=== PATIENT | female | born 1970 | race Caucasian/White ===

== ENCOUNTER 2018-11-21 15:53 | Inpatient (IN) ==
[2018-11-21] MEDS ORDERED: VANCOMYCIN IV PER PHARMACY MISC SCH (16:30)
--- NOTE | 2018-11-21 16:38 | Diag Imaging Result Doc PS360 ---
CHEST-PORTABLE - 11/21/2018 INDICATION: copd, cellulitis of panniculus COMPARISON: 05/05/2017 FINDINGS: Stable significant cardiomegaly. There is worsening pulmonary vascular congestion. There is some linear atelectasis in the midlungs bilaterally. No evidence infiltrates or edema. IMPRESSION: Cardiomegaly. Worsening, severe pulmonary vascular congestion. Bilateral linear atelectasis. Electronically signed by Micky Feliciano 11/21/2018 4:35 PM
[2018-11-21 16:41] LABS: BASO# 0.02 X1000 (0.0-0.2); BASO% 0.5 % (0.0-0.8); EOS# 0.21 X1000 (0.0-0.7); EOS% 5.4 % (0.0-10.0); HEMATOCRIT 45.7 % (37.0-47.0); HEMOGLOBIN 14.7 g/dL (12.0-16.0); LYMPH# 1.04 X1000 (1.2-3.4); LYMPH% 26.9 % (20.5-51.1); MCH 31.1 PG (27-31); MCHC 32.2 g/dL (33-37); MCV 96.8 FL (81-99); MONO# 0.29 X1000 (0.11-0.59); MONO% 7.5 % (1.7-9.3); MPV 10.8 FL (7.4-10.4); NEUT# 2.31 X1000 (1.4-6.5); NEUT% 59.7 % (42.2-75.2); PLT 151 X1000 (130-400); RBC 4.72 XMIL (4.2-5.4); RDW 15.9 % (11.5-14.5); WBC 3.87 X1000 (4.8-10.8)
--- NOTE | 2018-11-21 16:43 | EKG Report ---
Test Performed on : 11/21/2018 4:37:19 PM Test Reason : copd, cellulitis of panniculus Blood Pressure : / mmHG Vent. Rate : 073 BPM Atrial Rate : 073 BPM P-R Int : 180 ms QRS Dur : 094 ms QT Int : 404 ms P-R-T Axes : 036 -11 084 degrees QTc Int : 445 ms Normal sinus rhythm. Low voltage QRS Cannot rule out Anterior infarct , age undetermined Abnormal ECG When compared with ECG of 12-MAY-2018 08:31, Nonspecific T wave abnormality now evident in Lateral leads Confirmed by Radha GIBSON, Hipolito Horton ([id number]) on 11/22/2018 10:01:57 AM
[2018-11-21] MEDS ORDERED: ZOSYN 3.375 GM in NS 50 ML IV SCH (17:00)
[2018-11-21 17:05] LABS: ALLEN TEST YES; BE 4.5 mmoll (-3.0-3.0); BLOOD TYPE ARTERIAL; HCO3-(ACT) 27.7 mmoll (20.0-26.0); O2(CT) 14.2 mL/dL (15.0-23.0); SAMPLE BLOOD; SAO2 87.2 % (95.0-100.0); pH(98.6) 7.27 (7.35-7.45)
[2018-11-21 17:06] LABS: POTASSIUM 4.4 mmol/L (3.5-5.1)
[2018-11-21 17:07] LABS: ALB/GLOB RATIO 1.4; ALBUMIN 4.4 g/dL (3.5-5.0); CALCIUM 9.4 mg/dL (8.8-10.2); CREATININE 2.2 mg/dL (0.5-0.9); TOTAL BILIRUBIN 0.38 mg/dL (0.20-1.00); TOTAL PROTEIN 7.6 g/dL (6.3-8.3)
[2018-11-21 17:08] LABS: MODALITY CANNULA
[2018-11-21 17:09] LABS: PCO2(98.6) 74 mmHg (35-45); PO2(98.6) 45 mmHg (60-100)
[2018-11-21] MEDS ORDERED: LASIX IV ONE (17:54)
[2018-11-21] MEDS: 1/2 NS 1,000 ML IV SCH ×2 (18:19→18:24)
[2018-11-21] MEDS: MAXIPIME 1 GM in NS 50 ML IV SCH (18:31)
[2018-11-21 19:18] LABS: ALLEN TEST YES; BE 5.6 mmoll (-3.0-3.0); BLOOD TYPE ARTERIAL; HCO3-(ACT) 28.9 mmoll (20.0-26.0); METHB 1.2 % (0.0-1.5); O2(CT) 16.3 mL/dL (15.0-23.0); PO2(98.6) 76 mmHg (60-100); SAMPLE BLOOD; SAO2 96.9 % (95.0-100.0); THB 14.1 g/dL (11.5-17.4); pH(98.6) 7.34 (7.35-7.45)
[2018-11-21 19:23] LABS: MODALITY BI PAP; O2HB 82.2 % (95.0-99.0); PCO2(98.6) 62 mmHg (35-45)
[2018-11-21] MEDS: DUONEB (A & A) INH SCH ×2 (19:25→23:10)
[2018-11-21] MEDS ORDERED: SYNTHROID IV ONE (19:38)
[2018-11-21] MEDS ORDERED: SODIUM CHLORIDE 0.9% INJ ONE (19:38)
--- NOTE | 2018-11-21 20:00 | INFECTIOUS DISEASE CONSULT REP ---
DATE: 11/21/2018 CONCLUSION: The patient has an abdominal wall cellulitis. RECOMMENDATIONS: I have discontinued vancomycin and Zosyn and put the patient on instead cefepime and Zyvox. DISCUSSION: The patient tells me that for years she has had a problem with her abdominal wall being erythematous and painful. She also has been having nausea and anorexia. Laboratory studies thus far show a CBC with a white count of 3870, hemoglobin 14.7, and platelet count 151,000. Patient's blood gases show a pH of 7.27, a PO2 of 45, a pCO2 of 74. Creatinine is 2.2. GFR is 24. AST is 41. Chest x-ray shows pulmonary vascular congestion, cardiomegaly, and atelectasis. [employer] MANA[employer] HISTORY: She is a 4, para 4, AB0. She has had a tubal ligation and patient had uterine ablation REVIEW OF SYSTEMS: Eyes and ears: Patient wears glasses and she has decreased hearing. Neck: No stiffness. Respiratory: Patient is short of breath even at rest. Cardiac: No chest pain or palpitations. GI: The patient states that she has nausea and anorexia. She also has been passing less stool than usual. : Patient also told me she is passing less urine than she used to. She is not complaining of dysuria or flank pain. Bones, joints, muscles: Patient complains of knees and ankles causing her pain, especially when she tries to stand. She does not have any muscle aches. Neurologic: Patient has paresthesias in her hands and feet. She has not had any seizures. PREVIOUS HOSPITALIZATIONS AND OPERATIONS: Patient has had an appendectomy, a cholecystectomy, thyroidectomy, myocardial infarction and placement of coronary artery stents. She has also had 4 labor and deliveries, tubal ligation and a uterine ablation. MEDICAL DISEASES: Positive for diabetes mellitus, morbid obesity, hypertension, hyperlipidemia and hypothyroidism. INFECTIOUS DISEASE HISTORY: Positive for pneumonia and UTI. FAMILY HISTORY: Positive for diabetes mellitus, hypertension and cancer. SOCIAL HISTORY[place] . Her son and daughter live with her. The patient has a dog as a pet. The patient smokes cigarettes but does not drink alcoholic beverages or abuse drugs. ALLERGIES: She has no known drug allergies. MEDICATIONS: Taken at home include albuterol inhaler, atorvastatin, Symbicort inhaler, Cardizem, Repatha, Zetia, Lasix, insulin, Atrovent nasal spray, Isordil, Synthroid, lisinopril, metoprolol and Effient. PHYSICAL EXAMINATION: Vital Signs: Temperature is 98.3 degrees, pulse 71, respirations 24, blood pressure is 161/109, patient weighs 404 pounds. General: This is a morbidly obese middle-aged female. She seems to be short of breath just lying or sitting in bed. Head, eyes, ears, nose and throat: She can hear my spoken words and see near objects. She is wearing glasses now. She did not have any white patches on her tongue. Neck: Patient did not have any neck pain when she turned her head. Lungs: Distant breath sounds. Cardiovascular: Patient had distant heart tones. Abdomen: Patient had erythema of the abdominal wall with a peau d'orange texture. There is no drainage coming from the abdominal wall. There are some excoriated areas. Neurologic: The patient is awake. She can move her arms and legs. There is no tremor. Her memory as regarding her medical history was intact. Thank you for the consult. cc: MD Travon Dominique MD
[2018-11-21] MEDS: ZYVOX PO SCH (20:04)
[2018-11-21 21:12] LABS: URINE SOURCE VOIDED
[2018-11-21 21:19] LABS: BILIRUBIN URINE NEGATIVE (NEGATIVE); BLOOD URINE NEGATIVE (NEGATIVE); COLOR STRAW; GLUCOSE URINE NEGATIVE (NEGATIVE); KETONE URINE NEGATIVE (NEGATIVE); LEUKOCYTES URINE NEGATIVE (NEGATIVE); NITRITE URINE NEGATIVE (NEGATIVE); PROTEIN URINE NEGATIVE (NEGATIVE); SP GRAVITY URINE 1.004; TURBIDITY URINE CLEAR (CLEAR); UROBILINOGEN URINE NORMAL (NORMAL)
[2018-11-21 21:20] LABS: UR EPITHELIAL CELLS <10 /HPF (<10); URINE BACTERIA NEGATIVE /HPF; URINE WBC <10 /HPF (<10)
[2018-11-22] MEDS: SODIUM CHLORIDE 0.9% INJ PRN (05:46)
[2018-11-22] MEDS: MAXIPIME 1 GM in NS 50 ML IV SCH ×2 (05:46→18:08)
[2018-11-22] MEDS: SYNTHROID IV SCH ×2 (05:46→08:05)
[2018-11-22] MEDS ORDERED: LASIX IV ONE (06:00)
[2018-11-22 06:11] LABS: BASO% 0.7 % (0.0-0.8); EOS% 5.4 % (0.0-10.0); HEMATOCRIT 43.1 % (37.0-47.0); HEMOGLOBIN 13.4 g/dL (12.0-16.0); LYMPH# 1.35 X1000 (1.2-3.4); LYMPH% 32.9 % (20.5-51.1); MCH 30.6 PG (27-31); MCHC 31.1 g/dL (33-37); MCV 98.4 FL (81-99); MONO% 9.5 % (1.7-9.3); MPV 10.9 FL (7.4-10.4); NEUT# 2.11 X1000 (1.4-6.5); NEUT% 51.5 % (42.2-75.2); PLT 143 X1000 (130-400); RBC 4.38 XMIL (4.2-5.4); RDW 15.9 % (11.5-14.5)
[2018-11-22 06:12] LABS: BASO# 0.03 X1000 (0.0-0.2); EOS# 0.22 X1000 (0.0-0.7); MONO# 0.39 X1000 (0.11-0.59)
[2018-11-22 06:19] LABS: ALB/GLOB RATIO 1.3; ALBUMIN 4.3 g/dL (3.5-5.0); CREATININE 2.5 mg/dL (0.5-0.9); MAGNESIUM 1.7 mg/dL (1.5-2.7); PHOSPHORUS 3.6 mg/dL (2.7-4.5); POTASSIUM 4.3 mmol/L (3.5-5.1); TOTAL BILIRUBIN 0.51 mg/dL (0.20-1.00); TOTAL PROTEIN 7.6 g/dL (6.3-8.3)
[2018-11-22] MEDS: DUONEB (A & A) INH SCH ×5 (07:51→23:55)
[2018-11-22] MEDS: ZYVOX PO SCH ×2 (08:05→21:30)
--- NOTE | 2018-11-22 08:06 | Diag Imaging Result Doc PS360 ---
CHEST-PORTABLE - 11/22/2018 INDICATION: abnormal exam COMPARISON: 11/21/2018 FINDINGS: Stable cardiomegaly and pulmonary vascular congestion. There is worsening bilateral basilar moderately extensive atelectasis. There is probably interstitial pulmonary edema. No large pleural effusion. IMPRESSION: Worsening from prior. Electronically signed by Micky Feliciano 11/22/2018 8:04 AM
--- NOTE | 2018-11-22 08:21 | PULMONOLOGY CONSULTATION ---
DATE: 11/21/2018 REQUESTING PHYSICIAN: Dr. Travon Verma. REASON FOR CONSULTATION: Obesity with chronic obstructive pulmonary disease. HISTORY OF PRESENT ILLNESS: Ms. Longoria is a 47-year-old white female with a 30 pack-year history for tobacco (continues to smoke greater than or equal to 1 pack per day), morbid obesity with a BMI of 87, diabetes mellitus, who has had difficulty with increased pain and redness in her abdominal pannus. She was evaluated by her primary care physician and did receive a course of Bactrim without clinical improvement. She was evaluated by Dr. Verma and admitted to the hospital to be evaluated for possible surgical intervention. PAST MEDICAL HISTORY: 1. Morbid obesity with BMI of 87, as outlined above. 2. Coronary artery disease with prior drug-eluting stent placed in the circumflex in March of 2014. The patient had increase in chest pain despite aggressive anginal management by Dr. Michael Huber. Attempts to perform a radial and brachial cardiac catheterization 05/13/2018 was aborted due to inability to cannulate her arterial vessels. 3. Chronic obstructive pulmonary disease with ongoing tobacco use. 4. Diabetes mellitus. 5. Obstructive sleep apnea. 6. Status post thyroidectomy for goiter. 7. Hypothyroidism with noncompliance of medications. Review of her TSH levels dating back to 2012 demonstrate a swing from as high as 63.16 to a low of 0.13. Then, it will swing back up and swing down again. Her database for prescriptions was reviewed over the last year. The last time she had her thyroid medication filled was 07/25/2018 for 30 days. 8. Status post cholecystectomy. 9. Status post appendectomy. 10. Chronic renal insufficiency. SOCIAL HISTORY: Ongoing tobacco use. She denies significant alcohol use. FAMILY HISTORY: Noncontributory to her current presentation. REVIEW OF SYSTEMS: Notable for abdominal redness and tenderness, shortness of breath with exertion, anxiety/stress which prevents her from stopping smoking. PHYSICAL EXAMINATION: General: Reveals a morbidly obese white female, who is sitting in the bed in no acute distress. Vital Signs: Blood pressure 152/84, heart rate 71, respiratory rate 12, oxygen saturation 70% on room air and 95% on supplemental oxygen. HEENT: Pupils are equal and reactive. Oropharynx appears clear. Neck: Supple. Chest: Reveals distant breath sounds bilaterally. Cardiac exam: Distant heart sounds. Normal S1, normal S2. Abdomen: Obese, with thickening and erythema of her skin consistent with panniculitis. Extremities: Reveal 1+ peripheral edema. LABS/X-RAYS: Chest x-ray reveals cardiomegaly, pulmonary vascular congestion, multiple venous clips associated with goiter removal. White blood count 3.87, hemoglobin 14.7, platelet count 151,000. Arterial blood gas reveals a pH of 7.27, pCO2 of 74, PO2 of 45 with a carboxyhemoglobin level of 16.5. Chemistry: Sodium 134, potassium 4.2, chloride 92, bicarbonate 33, BUN 10, creatinine 2.2. TSH elevated at 61.19. IMPRESSION: A 47-year-old with: 1. Super morbid obesity with a body mass index greater than 85. 2. Acute hypoxemic respiratory failure. 3. Chronic hypoxemic respiratory failure. 4. Acute on chronic hypercapnic respiratory failure. 5. Carbon monoxide poisoning from tobacco use. 6. Chronic obstructive pulmonary disease. 7. Nicotine addiction. 8. Hypothyroidism with noncompliance as outlined above. 9. Diabetes mellitus. 10. Coronary artery disease. 11. Obstructive sleep apnea. RECOMMENDATIONS: 1. Initiate Synthroid for severe hypothyroidism. 2. Antibiotics as outlined by Dr. Alexis Joshua for panniculitis. 3. Oxygen and smoking cessation for carbon monoxide poisoning. 4. Smoking cessation strongly recommended. 5. Diuresis as tolerated. 6. Surgical evaluation of panniculitis with possible treatment to be further defined by Dr. Verma. cc: MD Travon Mahan MD
--- NOTE | 2018-11-22 09:45 | CONSULTATION ---
DATE OF CONSULTATION: 11/22/2018 HISTORY OF PRESENT ILLNESS: Ms. Longoria is a 47-year-old, morbidly obese, history of sleep apnea, history of coronary artery disease, history of COPD and obstructive apnea, diastolic heart failure, hypertension, hyperlipidemia, diabetes mellitus type 2, continued tobacco use, hypothyroidism. She presents with pain and swelling in her lower abdomen. Concerned there could be an abscess in the panniculus and appears to have panniculitis so plan to give her some antibiotics. She also has what appears to be chronic kidney disease at least. Creatinine is elevated. Her serum creatinine was 2.2 yesterday and today 2.5. Hopefully, most of this is prerenal. Her creatinine was down to 1.0 in April 2017. It was 1.5 on 05/12/2018. PAST MEDICAL HISTORY: 1. Significant coronary artery disease, non-ST elevation myocardial infarction in March 2014. Last cardiac catheterization in 2014 demonstrated normal left main, LAD had a mid 50% lesion, circumflex had a mid patent stent, RCA had mild diffuse ectatic disease around 20-30%. 2. COPD. 3. Diastolic heart failure. 4. Hypertension. 5. Hyperlipidemia. 6. Diabetes mellitus type 2. 7. Continued tobacco use. 8. Hypothyroidism. 9. Sleep apnea. SOCIAL HISTORY: Continues to smoke. FAMILY HISTORY: Significant for hypertension. REVIEW OF SYSTEMS: She is not aware of any weight fluctuation in recent weeks. No fever or chills. She reports she has tenderness in her abdomen in the lower panniculus, and increased redness and discomfort. There is no drainage that she reported. Respiratory: She wears a BiPAP at night. She has obstructive apnea and underlying COPD. Cardiovascular: Denies any chest pain or palpitations. Musculoskeletal and Neurologic: No focal complaints. Endocrinologic and Hematologic: No significant history. PHYSICAL EXAMINATION: She is sitting up, breathing comfortably with nasal cannula. She did wear the BiPAP last night. Temperature 97.6 degrees, pulse 66, respirations 16, blood pressure 127/55. Pupils are equal and round. Lungs are clear in all lung gaming. Cardiovascular Examination: Regular rhythm and rate without murmur or S3. Abdomen: She has a tender lower panniculus with a large area of erythema and it is difficult to palpate but it seems that there is some subcutaneous fluctuance. She has minimal pedal edema at this time. LABORATORY DATA: White count 4100, hematocrit is 43, platelet count is 143,000. Sodium 138, potassium 4.3, chloride 92, BUN 10, creatinine 2.5, calcium is 9.0. AST is 40, ALT of 24, alkaline phosphatase 71. Urinalysis unremarkable. Blood gases, pH is 7.34, pCO2 62, PO2 76. This was on BiPAP with FiO2 of 45%, pressures of 18/8. Chest x-ray on presentation, cardiomegaly, worsening severe pulmonary vascular congestion, bilateral linear atelectasis. Followup chest x- ray this morning appears to be a little worsening of vascular congestion. ASSESSMENT AND PLAN: 1. Panniculitis, questionable abscess in the lower abdomen. We are going to try and get an ultrasound. May need to be drained currently. She has no allergies. She is on cefepime and Zyvox which is a good combination to cover for gram-positives and gram-negative and anaerobes. Dr. Joshua is following. 2. Chronic obstructive pulmonary disease, obstructive apnea, morbid obesity, hypoventilation syndrome. She wears BiPAP at night. She has what appears to be a history of diastolic dysfunction. 3. Acute kidney injury. I think we are going to have to give her some volume and also diurese her. Dr. Hollingsworth I think is consulted. I want to do what is best for her kidney function. 4. Diabetes mellitus type 2. 5. History of primary hypothyroidism. 6. Note that her TSH is 61 so we need to check T4 and TSH. It appears that she has got profound hypothyroidism as well. She is on Synthroid. Not sure if she has been taking it. It appears we are going to have to go up on her Synthroid and so I will increase it to 100 mcg intravenous daily, although Dr. Khan has just started that this morning so I will leave her at 50 right now. cc: MD Travon Dover MD
--- NOTE | 2018-11-22 09:58 | Diag Imaging Result Doc PS360 ---
US ABDOMEN-COMPLETE - 11/22/2018 INDICATION: panniculus COMPARISON: 11/16/2016 FINDINGS: There is slight edema in the anterior abdominal pannus. No fluid collections. Abdominal organs are all obscured by the patient's large size. IMPRESSION: Slight edema in the abdominal pannus. No drainable fluid collections. Electronically signed by Micky Feliciano 11/22/2018 9:56 AM
[2018-11-22] MEDS: NICODERM PATCH TD SCH (10:34)
[2018-11-22 12:15] LABS: UR CREAT RANDOM 22.9 mg/dL (11-20)
[2018-11-22 12:28] LABS: UR PROT RANDOM 4.8 mg/dL
--- NOTE | 2018-11-22 16:03 | NEPHROLOGY CONSULTATION ---
DATE: 11/22/2018 REASON FOR ADMISSION: Increased work of breathing. REASON FOR CONSULT: Acute kidney injury on CKD stage 3. PHYSICIAN REQUESTING CONSULT: Hipolito Garcia MD. HISTORY OF PRESENT ILLNESS: Ms. Longoria is a 47-year-old, morbidly obese, white female, who is known to our outpatient services for chronic kidney disease stage 3B. The patient was last seen in our office on 09/09/2018 with a creatinine of 1.66. She has an estimated GFR of 37%. Unfortunately, the patient had presented with pain and swelling in her lower abdomen. There was concern that she had abscess x2 with panniculitis. She was admitted for IV antibiotics. She was found to be acidotic. She was placed on BiPAP. Her creatinine was elevated on admission of 1.8, up to 2.2 and 2.5 today. She has been treated with large doses of IV Lasix, 120 mg yesterday and 80 mg today. She is off her BiPAP. She is on 4 L of nasal cannula. She is sitting up in bed. She denies any chest pain at this time. Positive for increased work of breathing, though she states that this is much better. No nausea, vomiting. No fever or chills that she is aware of. No recent diarrhea. Positive for pain on her abdomen with noted nondraining wounds, both to the right mid quadrant and left lower quadrant. PAST MEDICAL HISTORY: Significant for chronic kidney disease stage 3B. Baseline creatinine of 1.66. Significant coronary artery disease. She has had a non-STEMI IA in March 2014. Cardiac cath in 2014. Her LAD showed 50% lesion. Circumflex and RCA showed ectatic disease with 20 to 30 percent. She has COPD, diastolic heart failure, hypertension, hyperlipidemia, diabetes mellitus type 2, hypothyroidism, sleep apnea, and continued tobacco use. SOCIAL HISTORY: She continues to smoke 1 to 2 packs a day. She is not compliant with her medications. It is found during her hospital stay that her TSH was 61.19. FAMILY HISTORY: Positive for hypertension. Negative for kidney disease. ALLERGIES: Listed as no known drug allergies. MEDICATIONS: Toprol-XL, lisinopril, Lasix, Synthroid, Folic acid, aspirin, Zetia, albuterol sulfate inhalers, Repatha syringes, Dulera, atorvastatin, calcium. She is on Symbicort, Cardizem CD, vitamin D2, ferrous sulfate, Lantus, Atrovent, Imdur, Lovaza, polyethylene glycol, Klor-Con, Effient, Norvasc, gabapentin, Augmentin, Tessalon Perles, Zofran and Bactrim DS. REVIEW OF SYSTEMS: As best obtained per patient with pertinent positives listed above in the HPI. VITAL SIGNS: Temperature 97.6, blood pressure 127/55, heart rate 72, respirations 18. She is on 4 L nasal cannula. Her last recorded saturation is 95%. LABS: Sodium 138, potassium 4.3, chloride 92, CO2 of 36, BUN 10, creatinine 2.5, glucose 91. Her anion gap is 10. Her calcium is 9, phosphorus of 3.6, magnesium 1.7, albumin 4.3. White count 4.1, hemoglobin 13.4, hematocrit 43.1 with a platelet count of 143. The patient again had an AST of 40 with an ALT of 24. TSH of 61.19. She has a free T4 still pending. Urine electrolytes indicate a FENa score of 9.97%. We still are waiting on her fractionated urea score for her urine urea. ABGs: pH 7.34, CO2 of 62, O2 of 76, bicarb 28.9, with a lactate of 1.4. This is on BiPAP yesterday evening. The patient had a chest x-ray this a.m. showing worsening bilateral bibasilar moderate extensive atelectasis with questionable interstitial pulmonary edema. No large pleural effusions. PHYSICAL EXAMINATION: General: This is a 47-year-old, morbidly obese, white female. She is sitting up in bed. She appears in no acute distress though chronically ill. Skin: Warm and dry. Lesions noted to her abdominal region. HEENT: Normocephalic, atraumatic. Conjunctiva is pale. She has MONTSE. Mucous membranes are moist. Neck: Supple. Trachea midline. No evidence of JVD in the upright position. Cardiovascular: She is regular rate and rhythm. She is without murmur or gallop with distant heart sounds noted. Lungs: Diminished inspiratory effort. Clear to auscultation anterior. Remains on O2 support. Abdomen: Tender to her lower panniculus with a large area of erythema to the area. She does have some nondraining wounds to her right mid quadrant, left lower quadrant. Genitourinary: Not inspected. Extremities: Has trace to 1+ lower extremity edema. Neurological: She is alert and oriented x3. ASSESSMENT AND PLAN: 1. Acute kidney injury. This appears to be multifactorial. Patient has been on Bactrim DS, along with Augmentin on an outpatient basis while taking lasix and lisinopril. She has had her lisinopril stopped. She has continued to receive Lasix during her hospital stay. We agree with decreasing the dose of the Lasix and she is now on normal saline at 42 mL an hour as a keep open. We will re-evaluate labs in the a.m. We have checked and her IV antibiotics are currently renal dosed. 2. Electrolytes and acid-base balance. These are acceptable. 3. Anemia. This is actually in target. 4. Panniculitis. Patient is currently on Zyvox and Maxipime. These have been renally dosed. 5. Hypothyroidism. Patient has been on Synthroid on an outpatient basis, though her TSH is currently 61.19. She has been treated IV with Synthroid 50 mcg yesterday and today. We will defer to the primary care team to continue to monitor and follow with us. I would like to thank you for allowing us to follow with this patient. Dictated by COREY Mills for Alan Hollingsworth MD Face to face encounter, data reviewed, discussed with Tony Young on 11/22/18. I agree with the above assessment and plan of care. cc: COREY Mills MD Hugh C. Nabers, MD [facility]
[2018-11-22] MEDS: 1/2 NS 1,000 ML IV SCH (17:43)
--- NOTE | 2018-11-22 22:05 | PULMONOLOGY PROGRESS NOTE ---
DATE: 11/22/2018 SUBJECTIVE: The patient is awake and alert. She is currently on BiPAP. OBJECTIVE: The patient has been afebrile for the last 24 hours. Blood pressure 153/80, heart rate 74, respiratory rate 20, oxygen saturation 95% on 4 L per nasal cannula. HEENT: Pupils are equal and reactive. Oropharynx appears clear, but limited with BiPAP in place. Neck is supple. Chest reveals crackles throughout the lung bases. Cardiac exam: S1, S2. Abdomen is obese and soft, with evidence of panniculitis. Extremities reveal 1+ peripheral edema. DIAGNOSTIC DATA: Chest x-ray reveals cardiomegaly with atelectasis and increasing pulmonary edema. LABORATORY DATA: White blood count 4.10, hemoglobin 13.4. Sodium 138, potassium 4.3, chloride 92, bicarbonate 36, BUN 10, creatinine 2.5. IMPRESSION: A 47-year-old with: 1. Morbid obesity, with a body mass index greater than 85. 2. Acute hypoxemic respiratory failure. 3. Acute hypercapnic respiratory failure. 4. Carbon monoxide poisoning from tobacco use. 5. Chronic obstructive pulmonary disease. 6. Nicotine addiction. 7. Chronic kidney disease with elevation in creatinine. Her creatinine/BUN ratio remains low. 8. Diabetes mellitus. 9. Coronary artery disease. 10. Obstructive sleep apnea. 11. Worsening heart failure. 12. Hypothyroidism, with noncompliance to medication usage. The last time she had her Synthroid filled was in July. RECOMMENDATIONS: 1. Synthroid for severe hypothyroidism. This dose has been increased by Dr. Garcia. 2. Continue antibiotics as outlined by Dr. Alexis Joshua for panniculitis. No drainable fluid identified on ultrasound. 3. Smoking cessation has been strongly recommended. cc: MD Travon Mahan MD
[2018-11-23] MEDS: MAXIPIME 1 GM in NS 50 ML IV SCH ×3 (05:35→20:28)
[2018-11-23] MEDS: SYNTHROID IV SCH (06:59)
[2018-11-23 07:24] LABS: FREE T4 0.1 ng/dL (0.93-1.70); TSH 60.66 uIUmL (0.27-4.20)
[2018-11-23 07:25] LABS: CREATININE 2.2 mg/dL (0.5-0.9); MAGNESIUM 1.6 mg/dL (1.5-2.7); POTASSIUM 3.8 mmol/L (3.5-5.1)
[2018-11-23] MEDS ORDERED: XYLOCAINE-MPF 2% ONE (07:31)
[2018-11-23] MEDS ORDERED: QUELICIN (DOSE) ONE (07:31)
[2018-11-23] MEDS ORDERED: ROBINUL ONE (07:31)
[2018-11-23] MEDS ORDERED: DIPRIVAN 1% ONE (07:34)
[2018-11-23] MEDS ORDERED: FENTANYL ONE (07:35)
[2018-11-23] MEDS ORDERED: NEO-SYNEPHRINE ONE (07:38)
[2018-11-23] MEDS ORDERED: SODIUM CHLORIDE 0.9% 20 ML ONE (07:38)
[2018-11-23] MEDS: DUONEB (A & A) INH SCH ×5 (07:46→23:52)
--- NOTE | 2018-11-23 08:06 | NEPHROLOGY PROGRESS NOTE ---
DATE: 11/23/2018 TIME SEEN: 0715. SUBJECTIVE: Ms. Longoria is resting quietly in bed. Her family is at her bedside. She is currently on BiPAP on 4 L. She continues to have discomfort with her abdomen. IMAGING AND LABORATORY DATA: Sodium 134, potassium 3.8, chloride is 89, CO2 of 30.8, BUN is 14, creatinine 2.2, glucose 97, her anion gap is 10, her calcium is 9. Magnesium 1.6. Previous hemoglobin of 13.4. Her TSH this a.m. is 60.66. Her free T4 is 0.10. The patient had an abdominal ultrasound indicating slight edema in the abdominal pannus, but no drainable fluid collection. PHYSICAL EXAMINATION: Most Recent Vital Signs: Temperature 98.1 degrees, blood pressure 118/46, heart rate 67, respirations 14. She is on BiPAP, with a last recorded saturation of 99%. She has had 2123 in, and 1450 out to void. General: This is a 47-year-old white female. She is resting quietly in bed. She is in no acute distress. Skin: Warm and dry. HEENT: Normocephalic, atraumatic. Conjunctiva is pale. She has MONTSE. Mucous membranes are dry. Neck: Supple. Trachea midline. Unable to determine JVD secondary to BiPAP straps in place. Cardiovascular: She is regular rate and rhythm. She is without murmur or gallop, with distant heart sounds noted. Lungs: Diminished respiratory effort due to support. Abdomen: Tender on palpation. Large, erythematous area to the front, with nondraining wounds to the right mid quadrant and left lower quadrant. Genitourinary: Not inspected. The patient is voiding adequate amounts documented. Extremities: Trace pretibial edema. Neurological: She is alert and oriented x3. ASSESSMENT AND PLAN: 1. Acute kidney injury. Again, this is multifactorial. She has had her Bactrim stopped. She is off her lisinopril. Lasix has been decreased to a lower dose. She received intravenous fluid resuscitation yesterday. Her BUN and creatinine have responded nicely, with creatinine down to 2.2, baseline noted at 1.66 on her last visit in August in our office. No indications for intervention. 2. Electrolytes and acid-base balance. These are acceptable. 3. Anemia. This is in target. 4. Panniculitis. The patient remains on Zyvox and Maxipime, followed by the primary care with Dr. Joshua. 5. Hypothyroidism. She continues on Synthroid, dosed per primary care. I would like to thank you for allowing us to follow with this patient. Dictated by COREY Mills for Alan Hollingsworth MD Face to face encounter, data reviewed, discussed with Tony Young on 11/23/18. I agree with the above assessment and plan of care. cc: COREY Mills MD Hugh C. Nabers, MD [facility]
[2018-11-23] MEDS ORDERED: NIMBEX ONE (08:22)
[2018-11-23] MEDS ORDERED: XYLOCAINE 1% ONE (08:23)
[2018-11-23] MEDS ORDERED: MARCAINE 0.25% PF/EPI 1:200,000 ONE (08:23)
[2018-11-23] MEDS: NICODERM PATCH TD SCH ×2 (09:00→18:27)
[2018-11-23] MEDS ORDERED: ZOFRAN ONE (09:21)
[2018-11-23] MEDS ORDERED: VENTOLIN HFA ONE (09:23)
[2018-11-23] MEDS ORDERED: HYDROGEN PEROXIDE SOLUTION ONE (09:44)
[2018-11-23 09:47] LABS: URINE SOURCE CATH
[2018-11-23 09:50] LABS: BILIRUBIN URINE NEGATIVE (NEGATIVE); BLOOD URINE MODERATE (NEGATIVE); COLOR YELLOW; GLUCOSE URINE NEGATIVE (NEGATIVE); KETONE URINE NEGATIVE (NEGATIVE); LEUKOCYTES URINE NEGATIVE (NEGATIVE); NITRITE URINE NEGATIVE (NEGATIVE); PROTEIN URINE TRACE mg/dL (NEGATIVE); SP GRAVITY URINE 1.008; TURBIDITY URINE CLEAR (CLEAR); UR EPITHELIAL CELLS >10 /HPF (<10); URINE BACTERIA NEGATIVE /HPF; URINE RBC <10 /HPF (<10); URINE WBC <10 /HPF (<10); UROBILINOGEN URINE NORMAL (NORMAL)
[2018-11-23] MEDS: ZYVOX PO SCH ×2 (10:45→20:26)
--- NOTE | 2018-11-23 11:55 | OPERATIVE NOTE ---
PROCEDURE DATE: 11/23/2018 DIAGNOSES: 1. Necrotic panniculus. 2. End-stage chronic obstructive pulmonary disease with home oxygen. 3. Chronic renal failure. 4. Morbid obesity. She is 5 feet tall and about 500 pounds. PROCEDURE: Debridement portion necrotic panniculus. The patient was brought to the operating room after satisfactory induction of IV and endotracheal anesthesia, athrombic TEDs and a Tovar catheter were placed. Her lower abdomen was prepped and draped in the appropriate manner. The dominant portion of the necrotic panniculus was elliptically excised with excision of necrotic skin and subcutaneous tissue 20 x 6 x 5 cm. The purulence was serous with odor possible clostridium. Hemostasis was obtained by electrocautery. The wound was irrigated with peroxide and wound VAC was deployed with a satisfactory seal. The patient was subsequently awakened and extubated in the operating room and transferred to intensive care unit for monitoring and a Tovar catheter was left indwelling. ESTIMATED BLOOD LOSS: Was around 100 mL. cc: Travon Verma MD
[2018-11-23] MEDS ORDERED: POTASSIUM CHLORIDE 20 MEQ in 1/2 NS 1,000 ML IV SCH (13:00)
[2018-11-23] MEDS ORDERED: ZOSYN 3.375 GM in NS 50 ML IV SCH (13:00)
[2018-11-23] MEDS ORDERED: BLISTEX MEDICATED BERRY LIP BALM TOP ONE (13:06)
[2018-11-23] MEDS ORDERED: ZOSYN 2.25 GM in NS 50 ML IV SCH (13:15)
[2018-11-23] MEDS ORDERED: VANCOMYCIN IV PER PHARMACY MISC SCH (13:30)
--- NOTE | 2018-11-23 13:36 | INFECTIOUS DISEASE PROGRESS NO ---
DATE: 11/23/2018 SUBJECTIVE: The patient is status post debridement of a necrotic panniculus. MEDICATIONS: The patient is on a combination of Zyvox and Zosyn. PHYSICAL EXAMINATION: Vital Signs: Temperature is 97.8 degrees, pulse 64, respirations 13, blood pressure 120/60. General: This is a morbidly obese middle-age female. She is in no acute distress. Head, Eyes, Ears, Nose, and Throat: Patient is wearing a BiPAP mask. I did not notice any drainage coming from her nose or ears. Neck: No meningismus. Lungs: Diminished breath sounds, but regular, but they were clear. Cardiovascular: Heart tones also were distant, but appeared to be regular. Abdomen: At the lower part of the abdomen where there was erythema, there is much less now. A VAC is in place also. Skin: Does not have as much of a peau d'orange appearance as it did prior to the surgery. Neurologic: The patient is awake. She can move her extremities. There is no tremor. DIAGNOSTIC STUDIES: There is no new radiographic study. CBC shows a white count of 4100, hemoglobin 13.4, and platelet count 143,000. Culture from the patient's wounds are negative thus far. Creatinine is 2.2, GFR is 24. ASSESSMENT AND PLAN: The patient has had debridement of panniculitis. I plan to continue with the current antibiotics, namely Zyvox and Zosyn. COMORBIDITIES: 1. The patient is morbidly obese. 2. She also is a diabetic. 3. She also has hyperlipidemia. 4. Hypothyroidism. cc: MD Travon Dominique MD
[2018-11-23] MEDS: 1/2 NS + KCL 20 MEQ 1,000 ML IV SCH (14:07)
[2018-11-23] MEDS ORDERED: BLISTEX MEDICATED BERRY LIP BALM TOP PRN (14:33)
[2018-11-23] MEDS: MORPHINE IV PRN ×3 (14:48→21:31)
[2018-11-23] MEDS: ZOFRAN IV PRN (21:31)
--- NOTE | 2018-11-23 21:53 | PULMONOLOGY PROGRESS NOTE ---
DATE: 11/23/2018 SUBJECTIVE: The patient is awake and alert. She underwent pannus resection earlier today. She denies shortness of breath. OBJECTIVE: Vital Signs: The patient has been afebrile for the last 24 hours. BP 140/89, heart rate 66, respiratory rate 12, oxygen saturation 96% on nasal cannula. HEENT: Pupils are equal and reactive. Oropharynx is clear. Neck: Supple. Chest: Reveals crackles in both lung bases. Cardiac exam: S1, S2. Abdomen: Obese and soft with surgical dressings in place. Extremities: Reveal 1+ peripheral edema. LABORATORIES: Sodium 137, potassium 3.8, chloride 89, bicarbonate 30, BUN 14, creatinine 2.2, TSH 60.7, free T4 0.1, folate 2.4. IMPRESSION: A 47-year-old with: 1. Morbid obesity. 2. Acute hypoxemic respiratory failure. 3. Acute hypercapnic respiratory failure. 4. Carbon monoxide poisoning on presentation. 5. Nicotine addiction. 6. Chronic kidney disease. 7. Diabetes mellitus. 8. Coronary artery disease. 9. Obstructive sleep apnea. 10. Hypothyroidism. 11. Status post resection of her pannus for infection. PLAN: 1. Continue to cycle BiPAP at bedtime and p.r.n. 2. Continue oxygen and BiPAP for hypoxemic and hypercapnic respiratory failure. 3. Continue Synthroid. 4. Follow up chest x-ray tomorrow morning. cc: MD Travon Mahan MD
[2018-11-24] MEDS: 1/2 NS + KCL 20 MEQ 1,000 ML IV SCH ×2 (01:46→09:09)
[2018-11-24] MEDS: MORPHINE IV PRN ×4 (04:54→18:05)
[2018-11-24] MEDS: MAXIPIME 1 GM in NS 50 ML IV SCH ×3 (04:54→23:30)
[2018-11-24 05:34] LABS: BLOOD TYPE ARTERIAL; SAMPLE BLOOD
[2018-11-24 05:35] LABS: ALLEN TEST YES; BE 7.6 mmoll (-3.0-3.0); HCO3-(ACT) 30.7 mmoll (20.0-26.0); MODALITY CANNULA; O2(CT) 20.9 mL/dL (15.0-23.0); O2HB 93.7 % (95.0-99.0); PCO2(98.6) 74 mmHg (35-45); PO2(98.6) 76 mmHg (60-100); SAO2 96.7 % (95.0-100.0); THB 15.9 g/dL (11.5-17.4); pH(98.6) 7.31 (7.35-7.45)
[2018-11-24 06:09] LABS: ALB/GLOB RATIO 1.4; ALBUMIN 4.2 g/dL (3.5-5.0); CALCIUM 8.9 mg/dL (8.8-10.2); CREATININE 1.8 mg/dL (0.5-0.9); POTASSIUM 4.2 mmol/L (3.5-5.1); TOTAL BILIRUBIN 0.76 mg/dL (0.20-1.00); TOTAL PROTEIN 7.2 g/dL (6.3-8.3)
[2018-11-24] MEDS: SYNTHROID IV SCH (06:09)
[2018-11-24] MEDS: SODIUM CHLORIDE 0.9% INJ PRN (06:10)
--- NOTE | 2018-11-24 07:14 | Diag Imaging Result Doc PS360 ---
EXAM: CHEST-PORTABLE 11/24/2018 HISTORY: COPD TECHNIQUE: AP portable at 0513 COMMENT: There is cardiomegaly. There is increased pulmonary vascularity. There is apparent fluid in the minor fissure on the right and platelike opacity in the right base. The inspiration is less optimal than on 11/22/2018. There may be less fluid in the fissure on the right. IMPRESSION: Cardiomegaly. Right basilar atelectasis. The possibility of mild pulmonary edema is suggested. Electronically signed by Julien Yoder 11/24/2018 7:12 AM
[2018-11-24] MEDS: NICODERM PATCH TD SCH ×2 (07:57→09:07)
[2018-11-24] MEDS: ZYVOX PO SCH ×2 (07:57→20:35)
[2018-11-24] MEDS: DUONEB (A & A) INH SCH ×5 (08:01→23:10)
--- NOTE | 2018-11-24 10:38 | PROGRESS NOTE ---
DATE: 11/23/2018 SUBJECTIVE: Ms. Longoria is going to go for surgery, try and drain an abscess and put a wound VAC on. Has had an uneventful night. OBJECTIVE: Temperature 97.3 degrees, pulse 65, respirations 19, blood pressure 153/111. Pupils are equal and round. Lungs are clear in all lung gaming. Cardiovascular Examination: Regular rhythm and rate without murmur or S3. Lower abdomen tender and red, lower panniculus. Urine output was about 1100 mL. Chest x-ray on admission, on 11/22/2018, showed stable cardiomegaly, pulmonary vascular congestion. No sign of infiltrates. ASSESSMENT AND PLAN: 1. Plan is to do debridement of necrotic panniculus and place a wound VAC for panniculitis and underlying subcutaneous abscess. 2. Morbid obesity. 3. Acute hypoxemic respiratory failure, acute hypercapnic respiratory failure. 4. Carbon monoxide poisoning on presentation. 5. Nicotine addiction. 6. Chronic kidney disease. 7. Diabetes mellitus type 2. 8. Coronary artery disease. 9. Obstructive sleep apnea. 10. Hypothyroidism. 11. Plan is resection, drainage of pannus for her infection. cc: MD Travon Dover MD
--- NOTE | 2018-11-24 10:44 | PROGRESS NOTE ---
DATE: 11/24/2018 SUBJECTIVE: She is in ICU. She is comfortable, breathing comfortably. She says her stomach feels much better. Less pain, less pressure. Her bowels are moving. OBJECTIVE: Temperature 97.0 degrees, pulse 71, respirations 15, blood pressure 168/105. Pupils are equal and round. Lungs are clear in all lung gaming. Cardiovascular Examination: Regular rhythm and rate without murmur or S3. Abdomen is soft. Skin is warm and dry. Urine output is 1600 mL. Chest x-ray from 11/24/2018, from this morning, shows cardiomegaly, right basilar atelectasis, possibility of mild pulmonary edema. No significant change. ASSESSMENT AND PLAN: Necrotic panniculus. She had debridement of portion of necrotic panniculus in the operating room and a wound VAC was placed. Excision of necrotic skin, subcutaneous tissue, about 20 x 6 x 5 cm. Purulence was serous, odor, possible clostridium suspected so a wound VAC was placed. She does feel better. Less pressure. EXAMINATION: Temperature 97.0 degrees, pulse 71, respirations 15, blood pressure 168/105. Pupils are equal and round. No distended neck veins. Lungs are clear anterolateral and posterior. Cardiovascular Examination: Regular rhythm and rate without murmur or S3. Abdomen: Soft. Less tenderness in the lower panniculus but still red with erythema. Urine output was 1600 mL. ASSESSMENT AND PLAN: 1. Morbid obesity. 2. Acute hypoxemic respiratory failure. 3. Acute hypercapnic respiratory failure. 4. Carbon monoxide poisoning on presentation. 5. Nicotine addiction. 6. Chronic kidney disease. Renal function is improved. Creatinine came down from 2.5 to 1.8. Continue current fluids. 7. Diabetes mellitus type 2. Continue to check pattern of sugars, sliding scale. 8. Coronary artery disease. No sign of active ischemia. 9. Obstructive sleep apnea. Wears BiPAP as needed and wears BiPAP at night. She does this at home as well. 10. Primary hypothyroidism. 11. Cellulitis, panniculitis with necrotic tissue debrided, wound VAC. May have to debride some more. 12. We will continue current orders. She is on cefepime 1 g intravenous every 8 hours and Zyvox 600 mg by mouth every 12, Synthroid 50 mcg intravenous daily. Note that she was discovered to have primary hypothyroidism as well and started on Synthroid. She is on a nicotine patch. cc: MD Travon Dover MD
[2018-11-24] MEDS: ZOFRAN IV PRN ×3 (12:49→22:24)
--- NOTE | 2018-11-24 13:14 | NEPHROLOGY PROGRESS NOTE ---
DATE: 11/24/2018 SUBJECTIVE: Ms. Longoria is sitting up in bed. States that she is feeling a little bit better. She does have abdominal tenderness. LABORATORY DATA: Sodium 136, potassium 4.2, chloride 91, CO2 of 33, BUN 10, creatinine 1.8, glucose 96, anion gap 12, calcium 8.9, albumin 4.2. Previous hemoglobin 13.4. ABG showed pH 7.38, CO2 of 32, PO2 of 178, bicarb 20.6, with a lactate of 1.1 on 4 L. OBJECTIVE: Vital Signs: Temperature 97.3 degrees, blood pressure 146/73, heart rate 72, respirations 13. She is currently on O2 at 4 L nasal cannula. Last recorded saturation 95%. She has had 2160 in, 410 out to Tovar catheter. General: This is a 47-year-old white female, resting quietly in bed. She is in no acute distress. Skin: Warm and dry. HEENT: Normocephalic, atraumatic. Conjunctivae pale. She has MONTSE. Mucous membranes dry. Neck: Supple. Trachea midline. Unable to determine JVD. Cardiovascular: She is regular rate and rhythm. No murmur or gallop appreciated. Distant heart sounds are present. Lungs: Clear to auscultation bilaterally. Poor inspiratory effort. Remains on O2 support. Abdomen: Tender on palpation. Hypoactive bowel sounds. Nondraining wound after debridement. Genitourinary: Not inspected. The patient has been voiding, with Tovar catheter in place now. Extremities: Trace pretibial edema. Neurological: Alert and oriented x3. ASSESSMENT AND PLAN: 1. Acute kidney injury. This is multifactorial. The patient has improved during her hospital stay. She is close to her historical baseline of creatinine of 1.6, BUN of 10, with a creatinine of 1.8 today. Adequate urine output documented. No indications for intervention. 2. Electrolytes, acid-base balance, and anemia. These are all in target. 3. Panniculitis. The patient remains on renal dosed antibiotics of Zyvox and Maxipime. She is status postoperative day #[address] Verma. I would like to thank you for allowing us to follow with this patient. Dictated by COREY Mills for Alan Hollingsworth MD Face to face encounter, data reviewed, discussed with Tony Young on 11/24/18. I agree with the above assessment and plan of care. cc: COREY Mills MD Hugh C. Nabers, MD MTDD
--- NOTE | 2018-11-24 13:39 | INFECTIOUS DISEASE PROGRESS NO ---
DATE: 11/24/2018 PRESENT ILLNESS: The patient is status post debridement of a necrotic panniculus. MEDICATIONS: The patient has been on Zyvox and cefepime now for a total of 3 days. PHYSICAL EXAMINATION: Vital Signs: Temperature is 97 degrees, pulse 78, respirations 14, blood pressure is 153/84. General: This is a morbidly obese, middle-aged female. She is in no acute distress. Head, eyes, ears, nose, and throat: She is wearing a BiPAP mask. There is no drainage I could see from the nose or ears. I did not get a good look at the patient's mouth. Neck: The patient can move her neck without pain. Lungs: Distant breath sounds. Cardiovascular: Distant heart tones. On the monitor the patient is in sinus rhythm. Abdomen: The lower part of the abdomen showed erythema and peau d'orange texture. Also, the VAC is in place. Neurologic: The patient is awake. She can move her extremities. She can talk. There is no tremor. LABS AND X-RAY: The patient's does not have a CBC for today. Creatinine is 1.8. GFR is 30. Culture from the patient's abdomen taken at the time of surgery is negative. Chest x-ray shows a right basilar atelectasis and pulmonary edema. ASSESSMENT AND PLAN: The patient has panniculitis. She is status post having debridement of the abdominal wall. My plan would be to continue the current antibiotics pending further culture results. COMORBIDITIES: Morbid obesity, diabetes mellitus, hyperlipidemia, and hypothyroidism. cc: MD Travon Dominique MD
--- NOTE | 2018-11-24 20:19 | PULMONOLOGY PROGRESS NOTE ---
DATE: 11/24/2018 SUBJECTIVE: The patient is awake and alert. She reports she slept well last evening. She reports her pain is adequately controlled. OBJECTIVE: Vital Signs: Blood pressure 117/59, heart rate 61, respiratory rate 16, oxygen saturation 100% on 4 L per nasal cannula. HEENT: Pupils are equal and reactive. Oropharynx appears clear. Neck: Supple. Chest: Shallow breath sounds bilaterally with crackles in both lung bases. Cardiac: S1, S2. Abdomen: Obese and soft with surgical dressings in place. Extremities: 1+ peripheral edema. LABORATORIES: Arterial blood gas on nasal cannula this morning: PH 7.31, pCO2 of 74, pO2 of 76. Sodium 136, potassium 4.2, chloride 91, bicarbonate 33, BUN 10, creatinine 1.8. Chest x-ray reveals cardiomegaly with mild pulmonary edema. Microbiology reveals no abscess growth and no anaerobes identified. IMPRESSION: A 47-year-old with: 1. Morbid obesity. 2. Panniculitis. 3. Acute hypoxemic respiratory failure. 4. Acute hypercapnic respiratory failure. 5. Nicotine addiction. 6. Chronic kidney disease. 7. Diabetes mellitus. 8. Coronary artery disease. 9. Obstructive sleep apnea. 10. Hypothyroidism, with noncompliance on taking medications. PLAN: 1. Continue to cycle BiPAP at bedtime and as needed. 2. Consider discontinuing intravenous fluids tomorrow morning. She will be fluid avid and be at risk for fluid overload. 3. Continue Synthroid. 4. Follow up labs tomorrow morning. cc: MD Travon Mahan MD
[2018-11-25] MEDS: MORPHINE IV PRN ×4 (02:25→17:08)
[2018-11-25 04:40] LABS: ALLEN TEST YES; BE 8.8 mmoll (-3.0-3.0); BLOOD TYPE ARTERIAL; HCO3-(ACT) 31.8 mmoll (20.0-26.0); O2(CT) 16.8 mL/dL (15.0-23.0); O2HB 96.2 % (95.0-99.0); PO2(98.6) 105 mmHg (60-100); SAMPLE BLOOD; SAO2 99.2 % (95.0-100.0); SRATE 12 BPM; THB 12.3 g/dL (11.5-17.4)
[2018-11-25 04:41] LABS: MODALITY BI PAP; PCO2(98.6) 77 mmHg (35-45)
[2018-11-25] MEDS: MAXIPIME 1 GM in NS 50 ML IV SCH ×3 (05:00→21:21)
[2018-11-25 05:21] LABS: BASO# 0.01 X1000 (0.0-0.2); BASO% 0.2 % (0.0-0.8); EOS# 0.16 X1000 (0.0-0.7); HEMATOCRIT 36.8 % (37.0-47.0); HEMOGLOBIN 11.3 g/dL (12.0-16.0); IMM GRAN# 0.02 X1000 (0.0-0.04); IMM GRAN% 0.4 % (0.0-0.5); LYMPH# 1.23 X1000 (1.2-3.4); LYMPH% 23.3 % (20.5-51.1); MCH 30.3 PG (27-31); MCHC 30.7 g/dL (33-37); MCV 98.7 FL (81-99); MONO# 0.36 X1000 (0.11-0.59); MONO% 6.8 % (1.7-9.3); MPV 10.8 FL (7.4-10.4); NEUT% 66.3 % (42.2-75.2); PLT 114 X1000 (130-400); RBC 3.73 XMIL (4.2-5.4); RDW 15.6 % (11.5-14.5); WBC 5.28 X1000 (4.8-10.8)
[2018-11-25 05:41] LABS: CALCIUM 8.6 mg/dL (8.8-10.2); CREATININE 1.7 mg/dL (0.5-0.9); POTASSIUM 4.2 mmol/L (3.5-5.1)
[2018-11-25] MEDS: 1/2 NS + KCL 20 MEQ 1,000 ML IV SCH ×3 (06:07→13:12)
--- NOTE | 2018-11-25 06:32 | Diag Imaging Result Doc PS360 ---
EXAM: CHEST-PORTABLE HISTORY: abnormal exam TECHNIQUE: Portable chest single view COMPARISON: 11/24/2018 FINDINGS: The heart remains markedly enlarged. There is pulmonary edema. No pleural effusions identified. No consolidation. There are multiple surgical clips in the lower neck. IMPRESSION: Cardiomegaly with pulmonary edema with no interval improvement. Electronically signed by Wil Harris 11/25/2018 6:29 AM
[2018-11-25] MEDS: SYNTHROID IV SCH (06:35)
[2018-11-25] MEDS: DUONEB (A & A) INH SCH ×5 (07:45→23:21)
[2018-11-25] MEDS: ZOFRAN IV PRN ×2 (08:25→16:24)
[2018-11-25] MEDS: NICODERM PATCH TD SCH (08:26)
[2018-11-25] MEDS: ZYVOX PO SCH (08:27)
--- NOTE | 2018-11-25 09:57 | PROGRESS NOTE ---
DATE: 11/25/2018 SUBJECTIVE: Ms. Longoria had trouble with the wound VAC leaking some, did not get much sleep last night, but otherwise her belly feels much better. OBJECTIVE: Vital Signs: Temperature 97.5 degrees, pulse 62, respirations 15, blood pressure 156/70. Eyes: Pupils are equal and round. Lungs: Clear in all lung gaming. Cardiovascular exam: Regular rhythm and rate without murmur or S3. Abdomen: Soft. Skin: Warm and dry. : Urine output is 1700 mL. X-RAY: Chest x-ray with cardiomegaly, pulmonary edema, and no interval improvement. She is using the BiPAP at night. ASSESSMENT AND PLAN: 1. Panniculitis with subcutaneous abscess and a wound VAC in place. Continue antibiotics. She does feel better. May have to do some more debridement. We will see how she does on Wednesday. 2. Acute hypoxemic respiratory failure. 3. Acute hypercapnic respiratory failure. 4. Nicotine addiction. 5. Chronic kidney disease. Renal function appears stable. 6. Diabetes mellitus type 2. 7. Coronary artery disease. 8. Obstructive sleep apnea. 9. Hypothyroidism. I do not see any change in her orders right now. She is on Zyvox and her cultures with no growth. Wound VAC in place. LABORATORY DATA: From today, white count 5280, hematocrit 36, platelet count 114,000. Sodium 133, potassium 4.2, chloride 90. BUN 10, creatinine 1.7 which has come down from 2.2. Note: She also has hypothyroidism and has been put on Synthroid 50 mcg. cc: MD Travon Dover MD
[2018-11-25] MEDS ORDERED: VERSED ONE (10:41)
[2018-11-25] MEDS ORDERED: KETAMINE ONE (10:42)
[2018-11-25] MEDS ORDERED: DIPRIVAN 1% ONE (10:45)
--- NOTE | 2018-11-25 16:20 | NEPHROLOGY PROGRESS NOTE ---
DATE: 11/25/2018 SUBJECTIVE: She is alert and oriented, moaning. Her exam was performed at approximately 15 minutes until 10. OBJECTIVE: Vital signs: Blood pressure 156/70, heart rate 68, respiration 15, afebrile. General: No acute distress. Skin: Warm and dry. Neck: Neck veins are not distended. Heart: Regular. Lungs: Equal. Abdomen: Obese, nontender, less redness. Extremities: Have 1+ edema. IMPRESSION: Acute kidney injury overlying chronic kidney disease. Creatinine is down to 1.7. Bicarbonate of 34. She has chronic CO2 retention. No changes are required. I will sign off at this time, but I can be of further assistance, please do not hesitate to call. cc: MD Travon Linares MD
[2018-11-25] MEDS ORDERED: SILVER NITRATE APPLICATOR TOP ONE (17:21)
[2018-11-25] MEDS: CATAPRES-TTS-3 TD SCH (17:37)
--- NOTE | 2018-11-25 18:09 | INFECTIOUS DISEASE PROGRESS NO ---
DATE: 11/25/2018 PRESENT ILLNESS: The patient is status post her 2nd debridement of a necrotic panniculus. MEDICATIONS: The patient has been on Zyvox and cefepime now for a total of 4 days. PHYSICAL EXAMINATION: Vital Signs: Temperature is 97.7 degrees, pulse 73, respirations 14, blood pressure 145/76. General: This is a morbidly obese, middle-aged female. She seems to be delirious but she does not appear to be in any acute distress. Head/eyes/ears/nose/throat: She is wearing a BiPAP mask. There was no drainage from the ears. Neck: The patient did not seem to have any pain in her neck when she moved her head or neck. Lungs: Distant breath sounds. Cardiovascular: Distant heart tones. Abdomen: Was for the most part soft. In the lower part, that was more indurated and had the appearance of peau d'orange, also a VAC is in place. Neurologic: The patient is thrashing around in bed. She did not follow any requests. There was no tremor. LAB AND X-RAY: Chest x-ray shows pulmonary edema. The patient's cultures from the operative site remain negative. The creatinine is 1.7. GFR is 32. Blood gases show pH of 7.3, a PO2 of 105 and a pCO2 of 77. CBC shows a white count of 5280, hemoglobin 11.3, and platelet count 114,000. ASSESSMENT AND PLAN: Patient has a necrotic panniculitis. I plan to continue with the current antibiotics. COMORBIDITIES: Morbid obesity, diabetes mellitus, hyperlipidemia, and hypothyroidism. cc: MD Travon Dominique MD
[2018-11-25 19:14] LABS: ALLEN TEST YES; BE 7.5 mmoll (-3.0-3.0); BLOOD TYPE ARTERIAL; HCO3-(ACT) 30.8 mmoll (20.0-26.0); O2(CT) 14.8 mL/dL (15.0-23.0); O2HB 95.6 % (95.0-99.0); PO2(98.6) 97 mmHg (60-100); SAMPLE BLOOD; SAO2 98.5 % (95.0-100.0); THB 10.9 g/dL (11.5-17.4)
[2018-11-25 19:15] LABS: pH(98.6) 7.18 (7.35-7.45)
[2018-11-25 19:16] LABS: MODALITY BI PAP; PCO2(98.6) 104 mmHg (35-45)
[2018-11-25] MEDS ORDERED: DIPRIVAN 1% IV PRN (19:38)
[2018-11-25] MEDS ORDERED: DIPRIVAN 1% 1,000 MG/100 ML BOTTLE ONE (19:53)
[2018-11-25] MEDS ORDERED: QUELICIN (DOSE) ONE (20:03)
[2018-11-25] MEDS ORDERED: AMIDATE ONE (20:04)
[2018-11-25] MEDS ORDERED: NS 1,000 ML ONE (20:46)
--- NOTE | 2018-11-25 20:47 | Diag Imaging Result Doc PS360 ---
EXAM: CHEST-PORTABLE - 11/25/2018 HISTORY: ETT placement TECHNIQUE: Portable chest COMPARISON: Prior exam of 11/25/2018 FINDINGS: There has been interval placement of an endotracheal tube, with its tip approximately 4.5 cm above the shelia. There is stable cardiomegaly. There is apparent central vascular congestion similar to prior. There is no large pleural effusion or pneumothorax identified. IMPRESSION: Tip of endotracheal tube in satisfactory position approximately 4.5 cm above the shelia. Cardiomegaly with central vascular congestion similar to prior. Electronically signed by Eugene Canales 11/25/2018 8:45 PM
[2018-11-25] MEDS ORDERED: NS 1,000 ML IV ONE (20:51)
[2018-11-25] MEDS ORDERED: AMIDATE IV ONE (21:20)
[2018-11-25] MEDS ORDERED: QUELICIN IV ONE (21:20)
[2018-11-25] MEDS ORDERED: LIDOCAINE SYRINGE IV ONE (21:20)
[2018-11-25] MEDS: ATIVAN IV PRN (21:21)
[2018-11-25 21:26] LABS: HEMOGLOBIN 10.6 g/dL (12.0-16.0)
[2018-11-25 22:03] LABS: ALLEN TEST YES; BE 6.7 mmoll (-3.0-3.0); BLOOD TYPE ARTERIAL; HCO3-(ACT) 30.1 mmoll (20.0-26.0); METHB 0.9 % (0.0-1.5); O2(CT) 13.6 mL/dL (15.0-23.0); O2HB 92.9 % (95.0-99.0); PO2(98.6) 64 mmHg (60-100); SAMPLE BLOOD; SAO2 95.7 % (95.0-100.0); SRATE 18 BPM; THB 10.4 g/dL (11.5-17.4); TVOL 450 mL; pH(98.6) 7.25 (7.35-7.45)
[2018-11-25 22:04] LABS: MODALITY VENTILATOR; PCO2(98.6) 82 mmHg (35-45)
[2018-11-26] MEDS: ZYVOX 600 MG/D5W 600 MG/300 ML IVPB IV SCH ×3 (00:13→23:30)
[2018-11-26] MEDS: 1/2 NS + KCL 20 MEQ 1,000 ML IV SCH ×3 (00:13→18:48)
[2018-11-26] MEDS: ATIVAN IV PRN ×7 (00:14→23:31)
[2018-11-26] MEDS: ZYVOX PO SCH (00:43)
[2018-11-26 04:52] LABS: ALLEN TEST YES; BE 8.7 mmoll (-3.0-3.0); BLOOD TYPE ARTERIAL; HCO3-(ACT) 31.6 mmoll (20.0-26.0); METHB 1.4 % (0.0-1.5); O2(CT) 13.5 mL/dL (15.0-23.0); O2HB 91.3 % (95.0-99.0); PO2(98.6) 59 mmHg (60-100); SAMPLE BLOOD; SAO2 94.5 % (95.0-100.0); SRATE 20 BPM; THB 10.5 g/dL (11.5-17.4); TVOL 45 mL; pH(98.6) 7.38 (7.35-7.45)
[2018-11-26 04:53] LABS: MODALITY VENTILATOR
[2018-11-26 05:02] LABS: PCO2(98.6) 60 mmHg (35-45)
[2018-11-26] MEDS: SYNTHROID IV SCH (06:02)
[2018-11-26 06:37] LABS: BASO% 3.5 % (0.0-0.8); HEMATOCRIT 32.2 % (37.0-47.0); HEMOGLOBIN 10.1 g/dL (12.0-16.0); MCH 30.6 PG (27-31); MCHC 31.4 g/dL (33-37); MCV 97.6 FL (81-99); PLT 104 X1000 (130-400); RDW 15.5 % (11.5-14.5); WBC 11.43 X1000 (4.8-10.8)
[2018-11-26] MEDS: MAXIPIME 1 GM in NS 50 ML IV SCH ×3 (06:39→20:15)
[2018-11-26 06:42] LABS: CALCIUM 8.4 mg/dL (8.8-10.2); CREATININE 1.4 mg/dL (0.5-0.9); POTASSIUM 4.3 mmol/L (3.5-5.1)
--- NOTE | 2018-11-26 07:18 | Diag Imaging Result Doc PS360 ---
EXAM: CHEST-PORTABLE HISTORY: post op TECHNIQUE: Portable chest single view COMPARISON: 11/25/2018 FINDINGS: The heart remains markedly enlarged. Pulmonary edema persists. No change in the endotracheal tube. No pleural effusions identified. IMPRESSION: Stable chest. Electronically signed by Wil Harris 11/26/2018 7:16 AM
[2018-11-26] MEDS: DUONEB (A & A) INH SCH ×5 (07:36→23:30)
[2018-11-26 08:49] LABS: CK INDEX 0.7 (0.0-2.5); CK-MB 10.57 ng/mL (0.0-5.0)
--- NOTE | 2018-11-26 08:59 | PROGRESS NOTE ---
DATE: 11/26/2018 SUBJECTIVE: Ms. Longoria had further debridement yesterday evening, and had to intubate. She is on the ventilator and sedated, appears comfortable. OBJECTIVE: Temperature 98 degrees, pulse 77, respirations 20, and blood pressure 158/60. Pupils are equal and round. Her lungs anterolateral, scattered rhonchi. Abdomen soft. Skin is warm and dry. Her urine output is about 5.5 L. Chest x-ray stable chest. Tip of an endotracheal tube in satisfactory position at 4.5 cm above the shelia. ASSESSMENT AND PLAN: 1. Status post second debridement of her necrotic panniculus. Continue Zyvox and cefepime. She has been on this, and it will be the 5th day. 2. Respiratory failure, hypoventilation syndrome, hypercapnia, and hypoxemia. Pulmonary involved. 3. Acute kidney injury overlying chronic kidney disease. Creatinine is down to 1.7 and bicarbonate 34. She has chronic CO2 retention. Dr. Hollingsworth is following. LABORATORY: I do not see any new change on orders. Hematocrit 32, hemoglobin 10, and creatinine down to 1.4. cc: MD Traovn Dover MD
[2018-11-26] MEDS: NICODERM PATCH TD SCH (10:06)
[2018-11-26] MEDS: MORPHINE IV PRN ×4 (10:06→23:31)
[2018-11-27 04:30] LABS: ALLEN TEST YES; BE 6.3 mmoll (-3.0-3.0); BLOOD TYPE ARTERIAL; HCO3-(ACT) 29.8 mmoll (20.0-26.0); O2(CT) 13.2 mL/dL (15.0-23.0); O2HB 95.2 % (95.0-99.0); PO2(98.6) 80 mmHg (60-100); SAMPLE BLOOD; SAO2 98.6 % (95.0-100.0); SRATE 20 BPM; THB 9.8 g/dL (11.5-17.4); TVOL 450 mL; pH(98.6) 7.38 (7.35-7.45)
[2018-11-27 04:31] LABS: MODALITY VENTILATOR; PCO2(98.6) 55 mmHg (35-45)
[2018-11-27] MEDS: 1/2 NS + KCL 20 MEQ 1,000 ML IV SCH ×2 (04:43→19:26)
[2018-11-27] MEDS: MAXIPIME 1 GM in NS 50 ML IV SCH ×3 (04:43→21:26)
[2018-11-27] MEDS: MORPHINE IV PRN ×4 (04:43→21:26)
[2018-11-27] MEDS: ATIVAN IV PRN ×5 (04:44→21:26)
[2018-11-27 06:20] LABS: BASO# 0.01 X1000 (0.0-0.2); BASO% 0.2 % (0.0-0.8); EOS# 0.14 X1000 (0.0-0.7); EOS% 2.8 % (0.0-10.0); HEMATOCRIT 30.3 % (37.0-47.0); HEMOGLOBIN 9.5 g/dL (12.0-16.0); LYMPH# 1.29 X1000 (1.2-3.4); LYMPH% 25.8 % (20.5-51.1); MCH 30.3 PG (27-31); MCHC 31.4 g/dL (33-37); MCV 96.5 FL (81-99); MPV 11.3 FL (7.4-10.4); NEUT# 3.16 X1000 (1.4-6.5); NEUT% 63.2 % (42.2-75.2); PLT 123 X1000 (130-400); RBC 3.14 XMIL (4.2-5.4); RDW 15.8 % (11.5-14.5)
[2018-11-27] MEDS: SODIUM CHLORIDE 0.9% INJ PRN (06:35)
[2018-11-27] MEDS: SYNTHROID IV SCH (06:35)
[2018-11-27 06:44] LABS: CALCIUM 8.1 mg/dL (8.8-10.2); CREATININE 1.4 mg/dL (0.5-0.9); POTASSIUM 4.6 mmol/L (3.5-5.1)
[2018-11-27] MEDS: DUONEB (A & A) INH SCH ×5 (07:25→23:14)
[2018-11-27] MEDS ORDERED: LASIX IV ONE (08:05)
--- NOTE | 2018-11-27 08:15 | Diag Imaging Result Doc PS360 ---
EXAM: CHEST-PORTABLE - 11/27/2018 HISTORY: respiratory failure TECHNIQUE: Portable chest COMPARISON: 11/26/2018 FINDINGS: There is an endotracheal tube is tip approximately 8 cm above the shelia. There is cardiomegaly similar to prior. There is slight residual prominence of interstitial markings on the right. There is some hazy atelectasis at the left base. There is no substantial pleural effusion or pneumothorax identified. IMPRESSION: Stable cardiomegaly. Slight residual prominence of interstitial markings on the right. Hazy atelectasis at left base. Electronically signed by Eugene Canales 11/27/2018 8:12 AM
[2018-11-27] MEDS: NICODERM PATCH TD SCH (09:08)
[2018-11-27] MEDS: LOVENOX SUBQ SCH (09:24)
[2018-11-27] MEDS: PROTONIX IV SCH (09:24)
[2018-11-27] MEDS: SODIUM CHLORIDE 0.9% INJ SCH (09:24)
--- NOTE | 2018-11-27 11:57 | INFECTIOUS DISEASE PROGRESS NO ---
DATE: 11/27/2018 PRESENT ILLNESS: The patient has had 2 debridements of her necrotic panniculus. Currently, she is in Intensive Care Unit and intubated. MEDICATIONS: The patient has been on Zyvox and cefepime for a total of 6 days. PHYSICAL EXAMINATION: Vital Signs: Temperature is 99 degrees, pulse 89, respirations 20, blood pressure 120/57. General: This is a morbidly obese middle-aged female. She is intubated and sedated. Head, Eyes, Ears, Nose, and Throat: Orotracheal tube is in place. The patient's eyes are closed. There is no drainage from the nose or ears. Neck: No meningismus. Lungs: Breath sounds are distant. Cardiovascular: Heart tones are distant. The monitor shows that the patient is in sinus rhythm. Abdomen: In the lower part of the abdomen where the patient's skin is less erythematous and indurated than it was 2 to 3 days ago. Neurologic: As mentioned above, the patient is sedated. There is no spontaneous movement. The patient did not respond to verbal stimuli. Integument: No rash. DIAGNOSTIC STUDIES: Chest x-ray shows no infiltrates. The patient's CBC shows a white count of 5000, hemoglobin 9.5, and platelet count 123,000. Blood gases show a pH of 7.38, a PO2 of 80, and a pCO2 of 55. The creatinine is 1.4, GFR is 40. ASSESSMENT AND PLAN: Patient is status post debridement x2 of a necrotic panniculitis. For now, I plan to continue the current antibiotics. COMORBIDITIES: 1. Morbid obesity. 2. Diabetes mellitus. 3. Hypothyroidism. cc: MD Travon Dominique MD [facility]
[2018-11-27] MEDS: ZYVOX 600 MG/D5W 600 MG/300 ML IVPB IV SCH ×2 (12:19→23:29)
--- NOTE | 2018-11-27 13:28 | PROGRESS NOTE ---
DATE: 11/27/2018 This is for the hospitalist service. SUBJECTIVE: This is a 47-year-old. She is on the ventilator. She is sedated at this time. Appears to be comfortable. She is afebrile. OBJECTIVE: Temperature is 99.3 degrees this morning, pulse 84, respirations 20, blood pressure 135/71. Pupils are equal and round. No distended neck veins. Lungs anterolateral are clear in all lung gaming. Cardiovascular: Regular rhythm and rate without murmur or S3. Abdomen is soft. Skin is warm and dry. ASSESSMENT AND PLAN: 1. She has had 2 debridements now of necrotic panniculus subcutaneous abscess and is still on the ventilator. She is on Zyvox and cefepime. This is day 6 of these antibiotics. 2. Hypoventilation syndrome, morbid obesity, obstructive sleep apnea. We will try and wean her off the ventilator as able. 3. Diabetes mellitus, type 2. Sugar is under reasonable control. 4. Newly discovered primary hypothyroidism. It is a little early, but we may need to go up on the Synthroid. I will check her T4 and TSH. 5. Note that her CKs are 1500 so has a little bit of rhabdomyolysis going on. DIAGNOSTIC STUDIES: Sodium is stable 132, potassium 4.5, chloride 94, BUN is 9, creatinine 1.4 which has come down from 1.7. HER PRESENT ORDERS: One-half normal saline with 20 mEq potassium at 50 mL an hour. She is on a Catapres patch weekly, which is 0.3 mg. She is on getting albuterol DuoNeb, and breathing treatments. She is on Lovenox 40 mEq subcutaneous q.24 h., Synthroid 50 mcg daily. Using Ativan as needed for agitation, cefepime 1 g IV q.8 h., morphine p.r.n. pain 40 mg, nicotine patch 21 mg a day, Protonix 40 mg a day, linezolid 600 mg IV q.12 h. RADIOLOGICAL DATA: Her chest x-ray from this morning: Stable cardiomegaly, slight residual prominence of interstitial markings on the right, hazy atelectasis at the left base. cc: MD Travon Dover MD [facility]
[2018-11-28] MEDS: MORPHINE IV PRN ×4 (03:39→23:27)
[2018-11-28 04:49] LABS: ALLEN TEST YES; BE 9.3 mmoll (-3.0-3.0); BLOOD TYPE ARTERIAL; HCO3-(ACT) 32.2 mmoll (20.0-26.0); METHB 0.4 % (0.0-1.5); O2(CT) 12.4 mL/dL (15.0-23.0); O2HB 95.8 % (95.0-99.0); PO2(98.6) 74 mmHg (60-100); SAMPLE BLOOD; SAO2 100.2 % (95.0-100.0); SRATE 20 BPM; THB 9.1 g/dL (11.5-17.4); TVOL 450 mL; pH(98.6) 7.44 (7.35-7.45)
[2018-11-28 04:52] LABS: MODALITY VENTILATOR; PCO2(98.6) 51 mmHg (35-45)
[2018-11-28] MEDS: MAXIPIME 1 GM in NS 50 ML IV SCH ×3 (05:20→20:31)
[2018-11-28] MEDS: SODIUM CHLORIDE 0.9% INJ PRN (06:09)
[2018-11-28] MEDS: SYNTHROID IV SCH (06:09)
--- NOTE | 2018-11-28 06:40 | Diag Imaging Result Doc PS360 ---
EXAM: CHEST-PORTABLE HISTORY: Vent protocol TECHNIQUE: Chest single view COMPARISON: 11/27/2018 FINDINGS: The lungs are well expanded. The heart is enlarged. There is vascular distention. There is a small left pleural effusion. Endotracheal tube is unchanged. There are multiple surgical clips in the lower neck. IMPRESSION: Stable chest. Electronically signed by Wil Harris 11/28/2018 6:37 AM
[2018-11-28] MEDS: DUONEB (A & A) INH SCH ×5 (07:36→23:33)
[2018-11-28] MEDS: PROTONIX IV SCH (08:36)
[2018-11-28] MEDS: LOVENOX SUBQ SCH (08:36)
[2018-11-28] MEDS: SODIUM CHLORIDE 0.9% INJ SCH (08:36)
[2018-11-28] MEDS: ATIVAN IV PRN ×4 (08:36→20:31)
[2018-11-28] MEDS: NICODERM PATCH TD SCH (08:40)
--- NOTE | 2018-11-28 09:31 | PROGRESS NOTE ---
DATE: 11/28/2018 SUBJECTIVE: Ms. Longoria is on the ventilator. She is sedated. She appears comfortable. OBJECTIVE: Vital Signs: She is afebrile, temp 97.8 degrees, pulse 90, respirations 20, blood pressure 139/60. Urine output 5300 mL. HEENT: Pupils are equal and round. Lungs: Clear in all lung gaming. Cardiovascular: Regular rhythm and rate without murmur or S3. Abdomen: Soft. Skin: Warm and dry. IMAGING: Chest x-ray: Stable chest. Lungs are well expanded. Heart is enlarged. There is some vascular distention. There is a small left pleural effusion. Endotracheal tube is unchanged. Multiple surgical clips in the neck. ASSESSMENT AND PLAN: 1. He has had two debridements for necrotic panniculus, subcutaneous abscess, and it looks like she will have another one tomorrow. Keep her on the ventilator. Will not try and wean her today. She is on Zyvox and cefepime. This is day 7. 2. Hypoventilation syndrome, morbid obesity, obstructive sleep apnea, on the ventilator at this time. 3. Diabetes mellitus type 2. Continue to follow pattern sugars with sliding scale. 4. Primary hypothyroidism. It is a little early, but went ahead and checked a T4 and TSH, and will plan on checking that. She does have an elevation of CKs with mild rhabdomyolysis. Creatinine is stable at 1.4. Looking at her orders, I do not see any change. cc: MD Travon Dover MD
[2018-11-28] MEDS: ZYVOX 600 MG/D5W 600 MG/300 ML IVPB IV SCH ×2 (11:46→23:39)
[2018-11-28] MEDS: 1/2 NS + KCL 20 MEQ 1,000 ML IV SCH (15:28)
[2018-11-29] MEDS: ATIVAN IV PRN ×5 (03:41→23:20)
[2018-11-29] MEDS: MORPHINE IV PRN ×3 (03:51→20:23)
[2018-11-29] MEDS: MAXIPIME 1 GM in NS 50 ML IV SCH ×3 (04:13→20:21)
[2018-11-29 04:39] LABS: ALLEN TEST YES; BE 7.4 mmoll (-3.0-3.0); BLOOD TYPE ARTERIAL; HCO3-(ACT) 30.7 mmoll (20.0-26.0); METHB 1.2 % (0.0-1.5); O2(CT) 12.9 mL/dL (15.0-23.0); O2HB 93.9 % (95.0-99.0); PO2(98.6) 72 mmHg (60-100); SAMPLE BLOOD; SAO2 97.1 % (95.0-100.0); SRATE 20 BPM; THB 9.7 g/dL (11.5-17.4); TVOL 450 mL
[2018-11-29 04:40] LABS: MODALITY VENTILATOR
[2018-11-29 05:42] LABS: BASO# 0.01 X1000 (0.0-0.2); BASO% 0.2 % (0.0-0.8); EOS# 0.21 X1000 (0.0-0.7); EOS% 4.5 % (0.0-10.0); HEMATOCRIT 29.9 % (37.0-47.0); HEMOGLOBIN 9.3 g/dL (12.0-16.0); LYMPH# 1.19 X1000 (1.2-3.4); LYMPH% 25.6 % (20.5-51.1); MCH 30.2 PG (27-31); MCHC 31.1 g/dL (33-37); MCV 97.1 FL (81-99); MONO# 0.32 X1000 (0.11-0.59); MONO% 6.9 % (1.7-9.3); MPV 11.3 FL (7.4-10.4); NEUT# 2.91 X1000 (1.4-6.5); NEUT% 62.8 % (42.2-75.2); PLT 131 X1000 (130-400); RBC 3.08 XMIL (4.2-5.4); RDW 16.2 % (11.5-14.5); WBC 4.64 X1000 (4.8-10.8)
[2018-11-29 06:02] LABS: CALCIUM 9.1 mg/dL (8.8-10.2); CREATININE 1.3 mg/dL (0.5-0.9); POTASSIUM 3.9 mmol/L (3.5-5.1)
[2018-11-29] MEDS: SYNTHROID IV SCH (06:08)
[2018-11-29] MEDS: SODIUM CHLORIDE 0.9% INJ PRN (06:09)
[2018-11-29] MEDS: DUONEB (A & A) INH SCH ×5 (07:54→23:43)
--- NOTE | 2018-11-29 07:58 | Diag Imaging Result Doc PS360 ---
EXAM: CHEST-PORTABLE INDICATION: Vent protocol TECHNIQUE: One view COMPARISON: 11/28/2018 FINDINGS: The ET tube is in stable position. Pulmonary venous congestion and a small left effusion are approximately stable. No new consolidation is identified. There is stable cardiomegaly. IMPRESSION: Essentially stable chest. Electronically signed by Raphael Rodriguez 11/29/2018 7:56 AM
[2018-11-29] MEDS: PROTONIX IV SCH (08:11)
[2018-11-29] MEDS: SODIUM CHLORIDE 0.9% INJ SCH (08:11)
[2018-11-29] MEDS: NICODERM PATCH TD SCH (08:15)
[2018-11-29] MEDS ORDERED: SENSORCAINE-MPF 0.5%/EPI 1:200,000 ONE (08:50)
[2018-11-29] MEDS ORDERED: VERSED ONE (08:52)
[2018-11-29] MEDS ORDERED: DILAUDID ONE (10:04)
[2018-11-29] MEDS ORDERED: ROBINUL ONE (10:10)
[2018-11-29] MEDS ORDERED: XYLOCAINE-MPF 2% ONE (10:10)
[2018-11-29] MEDS ORDERED: ZEMURON ONE ×2 (10:10→10:13)
[2018-11-29] MEDS ORDERED: D50W SYRINGE IV PRN ×2 (11:00→11:21)
[2018-11-29] MEDS: 1/2 NS + KCL 20 MEQ 1,000 ML IV SCH (11:00)
[2018-11-29] MEDS ORDERED: HUMULIN R SUBQ SCH (11:00)
[2018-11-29] MEDS: ZYVOX 600 MG/D5W 600 MG/300 ML IVPB IV SCH ×2 (11:16→23:20)
[2018-11-29 11:18] LABS: PCO2(98.6) 54 mmHg (35-45)
--- NOTE | 2018-11-29 11:30 | PROGRESS NOTE ---
DATE: 11/29/2018 SUBJECTIVE: She is about to go to surgery, but she is on the ventilator. OBJECTIVE: She appears comfortable. Remains afebrile. Temperature 98.7, pulse 72, respirations 20, blood pressure 132/62. Pupils are equal and round. Lungs are clear in all lung gaming. Cardiovascular with regular rhythm and rate without murmur or S3. Abdomen is soft. Skin is warm and dry. Urine output is 2000 mL. DIAGNOSTIC: Chest x-ray essentially stable. ASSESSMENT AND PLAN: 1. This will be the third debridement for necrotic panniculitis, subcutaneous abscess, and deep abscess. Continue Zyvox and Cefepime. 2. Hypoventilation syndrome, morbid obesity, obstructive sleep apnea on the ventilator, vent dependent at this time. 3. Diabetes mellitus type 2. Continue to follow pattern sugars. 4. Primary hypothyroidism. She is on Synthroid 50 mcg IV every day. 5. Mild rhabdomyolysis aware. cc: MD Travon Dover MD
--- NOTE | 2018-11-29 11:35 | Diag Imaging Result Doc PS360 ---
EXAM: CHEST-PORTABLE HISTORY: Central line placement TECHNIQUE: Portable chest single view COMPARISON: 5:06 AM FINDINGS: Interval placement of a right jugular line. The tip lies near the junction of the superior vena cava and right atrium. Cardiomegaly and pulmonary edema remain. No pneumothorax. Endotracheal tube is unchanged. IMPRESSION: No postprocedural pneumothorax. Electronically signed by Wil Harris 11/29/2018 11:33 AM
[2018-11-29] MEDS: HUMULIN R SUBQ SCH ×3 (13:11→20:20)
[2018-11-29] MEDS: 1: D50W 500 ML, AMINOSYN 10% 500 ML with TPN ELECTROLYTES 20 ML, CALCIUM GLUCONATE 5 MEQ IV SCH ×11 (13:41)
[2018-11-30] MEDS: HUMULIN R SUBQ SCH ×6 (00:40→20:21)
[2018-11-30] MEDS: MORPHINE IV PRN ×3 (03:35→23:00)
[2018-11-30] MEDS: ATIVAN IV PRN (03:35)
[2018-11-30 04:39] LABS: ALLEN TEST YES; BE 8.5 mmoll (-3.0-3.0); BLOOD TYPE ARTERIAL; HCO3-(ACT) 31.6 mmoll (20.0-26.0); O2HB 95.6 % (95.0-99.0); PO2(98.6) 77 mmHg (60-100); SAMPLE BLOOD; SAO2 98.6 % (95.0-100.0); SRATE 20 BPM; THB 8.1 g/dL (11.5-17.4); TVOL 450 mL; pH(98.6) 7.41 (7.35-7.45)
[2018-11-30 04:43] LABS: MODALITY VENTILATOR
[2018-11-30 04:44] LABS: PCO2(98.6) 54 mmHg (35-45)
[2018-11-30] MEDS: 1/2 NS + KCL 20 MEQ 1,000 ML IV SCH ×2 (05:48→08:17)
[2018-11-30] MEDS: MAXIPIME 1 GM in NS 50 ML IV SCH ×3 (05:48→20:21)
[2018-11-30 06:08] LABS: EOS# 0.16 X1000 (0.0-0.7); EOS% 3.9 % (0.0-10.0); HEMOGLOBIN 9.2 g/dL (12.0-16.0); LYMPH# 0.85 X1000 (1.2-3.4); LYMPH% 20.7 % (20.5-51.1); MCH 30.6 PG (27-31); MCHC 31.7 g/dL (33-37); MCV 96.3 FL (81-99); MONO# 0.34 X1000 (0.11-0.59); MONO% 8.3 % (1.7-9.3); MPV 10.9 FL (7.4-10.4); NEUT# 2.76 X1000 (1.4-6.5); NEUT% 67.1 % (42.2-75.2); PLT 124 X1000 (130-400); RBC 3.01 XMIL (4.2-5.4); RDW 16.1 % (11.5-14.5); WBC 4.11 X1000 (4.8-10.8)
[2018-11-30] MEDS: SYNTHROID IV SCH (06:37)
[2018-11-30 06:42] LABS: CALCIUM 9.1 mg/dL (8.8-10.2); CREATININE 1.2 mg/dL (0.5-0.9); MAGNESIUM 1.8 mg/dL (1.5-2.7); PHOSPHORUS 2.4 mg/dL (2.7-4.5); PREALBUMIN 15.7 mg/dL (20-40)
--- NOTE | 2018-11-30 06:44 | Diag Imaging Result Doc PS360 ---
CHEST-PORTABLE - 11/30/2018 INDICATION: Vent protocol COMPARISON: 11/29/2018 FINDINGS: Stable endotracheal tube and right internal jugular central line in good position. Stable severe cardiomegaly and pulmonary vascular congestion. Stable mild pulmonary edema. No large pleural effusion. IMPRESSION: No change from prior. Electronically signed by Micky Feliciano 11/30/2018 6:42 AM
[2018-11-30 07:23] LABS: CK INDEX 0.6 (0.0-2.5); CK-MB 2.9 ng/mL (0.0-5.0)
[2018-11-30] MEDS: DUONEB (A & A) INH SCH ×5 (08:08→23:24)
[2018-11-30] MEDS: PROTONIX IV SCH (08:18)
[2018-11-30] MEDS: SODIUM CHLORIDE 0.9% INJ SCH (08:18)
[2018-11-30] MEDS: NICODERM PATCH TD SCH (08:26)
[2018-11-30] MEDS: 1: D50W 500 ML, AMINOSYN 10% 500 ML with TPN ELECTROLYTES 20 ML, CALCIUM GLUCONATE 5 MEQ IV SCH ×11 (10:30)
[2018-11-30 10:58] LABS: ALLEN TEST YES; BE 7.2 mmoll (-3.0-3.0); BLOOD TYPE ARTERIAL; HCO3-(ACT) 30.5 mmoll (20.0-26.0); METHB 1.1 % (0.0-1.5); O2(CT) 13.5 mL/dL (15.0-23.0); O2HB 94.6 % (95.0-99.0); PO2(98.6) 74 mmHg (60-100); SAMPLE BLOOD; SAO2 97.2 % (95.0-100.0); THB 10.1 g/dL (11.5-17.4); pH(98.6) 7.41 (7.35-7.45)
[2018-11-30 10:59] LABS: MODALITY VENTILATOR; PCO2(98.6) 52 mmHg (35-45)
[2018-11-30] MEDS: SOLU-MEDROL IV SCH ×2 (13:35→20:21)
[2018-11-30] MEDS: ZYVOX 600 MG/D5W 600 MG/300 ML IVPB IV SCH (13:35)
--- NOTE | 2018-11-30 14:15 | PROGRESS NOTE ---
DATE: 11/30/2018 SUBJECTIVE: Ms. Longoria appears comfortable. She is intubated. Had her 3rd surgery yesterday and remains afebrile. OBJECTIVE: Temperature 97.9 degrees, pulse 79, respirations 20, blood pressure 125/61. Pupils are equal round. Lungs are clear in all lung gaming. Cardiovascular: Regular rate without murmur or S3. Abdomen is soft. Skin is warm and dry. Urine output 1900 mL. Blood sugar is 136 and 137. Chest x-ray: No change from prior. Stable endotracheal tube. Right internal jugular central line in good position. Stable severe cardiomegaly and pulmonary venous congestion. ASSESSMENT AND PLAN: 1. The 3rd debridement for necrotic panniculitis. Continue IV antibiotics, Zyvox and cefepime. 2. Hypoventilation syndrome, morbid obesity, obstructive apnea. Hope to be able to wean her off the ventilator. 3. Diabetes mellitus type 2. Follow pattern sugars. 4. Primary hypothyroidism, on Synthroid 50 mcg daily IV. 5. Mild rhabdomyolysis. Renal, her blood counts today white count 4110, hematocrit is 29 hemoglobin 9.2, platelet count 124,000. Chemistries: Sodium 134, potassium 4.0, chloride 94, BUN 9, creatinine 1.2. Blood sugars 122, 136, 137. REVIEW OF ORDERS: Getting 1/2 normal saline with potassium at 50 mL an hour on a clonidine patch. I think it is 0.3 mg patch q.week, Synthroid 50 mcg a day, Ativan 2 mg IV q.2 hours p.r.n., cefepime 1 g IV q.8 hours, morphine 4 mg IV q.4 hours p.r.n., nicotine patch 21 mg, Protonix 40 mg IV q.24 hours, linezolid 600 mg IV q.12. cc: MD Travon Dover MD
--- NOTE | 2018-11-30 17:57 | INFECTIOUS DISEASE PROGRESS NO ---
DATE: 11/28/2018 PRESENT ILLNESS: The patient is status post 2 debridements of the patient's necrotic panniculitis. MEDICATIONS: This is the 7th day of treatment with Zyvox and cefepime. PHYSICAL EXAMINATION: Vital Signs: Temperature is 98 degrees, pulse 81, respirations 20, blood pressure 134/58. General: This is a morbidly obese middle-aged female. She is intubated and sedated. Head, Eyes, Ears, Nose, and Throat: Orotracheal tube is in place. The patient opened her eyelids, and she did track with her eyes. She was able to hear my spoken words because she did some requests that I asked of her, such as moving her extremities. Neck: No meningismus. Lungs: The breath sounds were distant. I did not hear any rales or rhonchi. Cardiovascular: The heart tones were also did distant. The heart rate was regular. Abdomen: The lower part of the abdomen has the VAC in place. The wound is less erythematous and indurated. Neurologic: The patient is lethargic, but she did follow request to move her extremities. DIAGNOSTIC STUDIES: Chest x-ray shows bilateral vascular congestion. The cultures taken at surgery from the patient's abdomen are all negative. Today, the patient's blood gases showed a pH of 7.44, PO2 of 74, and a pCO2 of 51. There was no CBC or BMP for today. ASSESSMENT AND PLAN: Patient is status post 2 debridements of a necrotic panniculitis. My plan is to continue the current antibiotics. COMORBIDITIES: 1. Morbid obesity. 2. Diabetes mellitus. 3. Hypothyroidism. cc: MD Travon Doimnique MD
[2018-12-01] MEDS: ZYVOX 600 MG/D5W 600 MG/300 ML IVPB IV SCH ×3 (00:19→23:36)
[2018-12-01] MEDS: HUMULIN R SUBQ SCH ×7 (00:19→23:37)
[2018-12-01] MEDS: 1/2 NS + KCL 20 MEQ 1,000 ML IV SCH ×2 (03:25→23:36)
[2018-12-01 04:43] LABS: BE 6.6 mmoll (-3.0-3.0); BLOOD TYPE ARTERIAL; PO2(98.6) 85 mmHg (60-100); SAMPLE BLOOD; pH(98.6) 7.39 (7.35-7.45)
[2018-12-01 04:44] LABS: ALLEN TEST YES; METHB 1.7 % (0.0-1.5); MODALITY BI PAP; O2(CT) 13.8 mL/dL (15.0-23.0); O2HB 94.6 % (95.0-99.0); PCO2(98.6) 54 mmHg (35-45); SAO2 98.1 % (95.0-100.0); THB 10.3 g/dL (11.5-17.4)
[2018-12-01] MEDS: SOLU-MEDROL IV SCH ×3 (05:49→20:16)
[2018-12-01] MEDS: MAXIPIME 1 GM in NS 50 ML IV SCH ×3 (05:49→20:16)
[2018-12-01] MEDS: SYNTHROID IV SCH ×2 (05:51→08:20)
[2018-12-01] MEDS: 1: D50W 500 ML, AMINOSYN 10% 500 ML with TPN ELECTROLYTES 20 ML, CALCIUM GLUCONATE 5 MEQ IV SCH ×11 (05:51)
[2018-12-01 06:51] LABS: CALCIUM 9.6 mg/dL (8.8-10.2); CREATININE 1.3 mg/dL (0.5-0.9); MAGNESIUM 1.9 mg/dL (1.5-2.7); PHOSPHORUS 2.5 mg/dL (2.7-4.5); POTASSIUM 4.8 mmol/L (3.5-5.1)
--- NOTE | 2018-12-01 07:19 | Diag Imaging Result Doc PS360 ---
EXAM: CHEST-PORTABLE HISTORY: Vent protocol TECHNIQUE: Portable chest single view COMPARISON: 11/30/2018 FINDINGS: No change in the right jugular line. The heart is enlarged. Pulmonary edema persists. Questionable tiny pleural effusions. The overall appearance is similar to the prior exam. IMPRESSION: No interval improvement. Electronically signed by Wil Harris 12/01/2018 7:17 AM
[2018-12-01] MEDS: DUONEB (A & A) INH SCH ×5 (07:45→23:25)
--- NOTE | 2018-12-01 07:53 | PROGRESS NOTE ---
DATE: 12/01/2018 SUBJECTIVE: She was extubated yesterday doing well. She is on BiPAP at the present time breathing comfortably. She remains afebrile. OBJECTIVE: Temperature 98.1 degrees, pulse 79, respirations 13, and blood pressure 104/40. Pupils are equal and round. Lungs are clear in all lung gaming. Cardiovascular exam with regular rhythm and rate without murmur or S3. Abdomen is soft. Skin is warm and dry. Chest x-ray showed no interval improvement. No change from right jugular line. Heart was enlarged. Pulmonary edema persists. Questionable tiny pleural effusions. Abdomen looks good. ASSESSMENT AND PLAN: 1. She may be able to move to the floor today. This was her 3rd debridement and he closed up the abdomen. Continue the Zyvox and cefepime. 2. Hypoventilation syndrome, morbid obesity, obstructive apnea, and able to wean off the ventilator. Encouraged with that. She is on BiPAP now. 3. Diabetes mellitus type 2. Sugars under good control. 4. Primary hypothyroidism on Synthroid 50 mcg IV daily. 5. Mild rhabdomyolysis which is improving. LABORATORY: Creatinine is 1.3. Sodium 133, potassium 4.8, chloride is 94, and BUN 10. White blood cell count from yesterday was 4110, hematocrit was 29, hemoglobin was 9.2, and platelet count 124,000. cc: MD Travon Dover MD
[2018-12-01] MEDS: NICODERM PATCH TD SCH (08:21)
[2018-12-01] MEDS: SODIUM CHLORIDE 0.9% INJ SCH (08:21)
[2018-12-01] MEDS: PROTONIX IV SCH (08:21)
[2018-12-01] MEDS: MORPHINE IV PRN ×3 (10:13→21:00)
--- NOTE | 2018-12-01 14:53 | INFECTIOUS DISEASE PROGRESS NO ---
DATE: 12/01/2018 PRESENT ILLNESS: The patient is status post debridements of her necrotic panniculitis. MEDICATIONS: This is the 8th day of treatment with Zyvox and cefepime. PHYSICAL EXAMINATION: Vital Signs: Temperature is 98.2 degrees, pulse 80, respirations 18, blood pressure 104/40. General: This is a morbidly obese, middle-aged female. She is wearing a BiPAP mask today. Head, Eyes, Ears, Nose, and Throat: No drainage is noted from the nose or ears. Her eyes were closed. Neck: There appeared to be no pain in the neck when I moved her head passively. The patient has a right-sided jugular vein catheter in place. The site is not erythematous or purulent. Lungs: Distant breath sounds. I did not hear any rales or rhonchi. Cardiovascular: Heart tones were distant. On the monitor, they were regular. Abdomen: The lower part of the abdomen was less indurated. It was not erythematous. The patient's incision is intact. The shailesh are present. Neurologic: The patient did not respond to verbal stimuli. There was no tremor. DIAGNOSTIC STUDIES: CBC shows a white count of 4110, hemoglobin 9.2, and platelet count 124,000. Blood gases show a pH of 7.39, a PO2 of 85, a pCO2 of 54. Creatinine is 1.3, GFR is 44. ASSESSMENT AND PLAN: The patient has had 2 debridements of her necrotic panniculitis. It appears clinically that it is getting better. My plan for now is to continue antibiotics. COMORBIDITIES: 1. Morbid obesity. 2. Diabetes mellitus. 3. Hypothyroidism. cc: MD Travon Dominique MD
[2018-12-02] MEDS: 1: D50W 500 ML, AMINOSYN 10% 500 ML with TPN ELECTROLYTES 20 ML, CALCIUM GLUCONATE 5 MEQ IV SCH ×11 (03:38)
[2018-12-02] MEDS: SOLU-MEDROL IV SCH ×3 (04:32→19:55)
[2018-12-02] MEDS: HUMULIN R SUBQ SCH ×6 (04:32→23:43)
[2018-12-02] MEDS: MAXIPIME 1 GM in NS 50 ML IV SCH (04:32)
[2018-12-02] MEDS: MORPHINE IV PRN ×2 (04:33→19:55)
[2018-12-02 04:57] LABS: ALLEN TEST YES; BE 8.5 mmoll (-3.0-3.0); BLOOD TYPE ARTERIAL; HCO3-(ACT) 31.6 mmoll (20.0-26.0); PCO2(98.6) 25 mmHg (35-45); PO2(98.6) 152 mmHg (60-100); SAMPLE BLOOD
[2018-12-02 04:58] LABS: MODALITY BI PAP; pH(98.6) 7.66 (7.35-7.45)
[2018-12-02 05:29] LABS: CALCIUM 9.8 mg/dL (8.8-10.2); CREATININE 1.3 mg/dL (0.5-0.9); MAGNESIUM 1.9 mg/dL (1.5-2.7); PHOSPHORUS 2.7 mg/dL (2.7-4.5); POTASSIUM 5.2 mmol/L (3.5-5.1)
[2018-12-02] MEDS: SYNTHROID IV SCH (06:07)
--- NOTE | 2018-12-02 06:43 | Diag Imaging Result Doc PS360 ---
CHEST-PORTABLE - 12/02/2018 INDICATION: Vent protocol COMPARISON: 12/01/2018 FINDINGS: Stable right central line. Stable cardiomegaly and pulmonary vascular congestion. No infiltrates or large effusions. IMPRESSION: No change from prior. Electronically signed by Micky Feliciano 12/02/2018 6:40 AM
[2018-12-02] MEDS: DUONEB (A & A) INH SCH ×5 (07:50→23:00)
[2018-12-02] MEDS: NICODERM PATCH TD SCH (09:14)
[2018-12-02] MEDS ORDERED: PROTONIX PO ONE (09:15)
--- NOTE | 2018-12-02 10:11 | PROGRESS NOTE ---
DATE: 12/02/2018 SUBJECTIVE: Ms. Longoria is doing much better sitting up eating breakfast, breathing comfortably. OBJECTIVE: Afebrile, temp 98.1 degrees, pulse 81, respirations 20, blood pressure 138/56.HEENT: Pupils appear equal. Lungs: Anterolaterally clear. Breathing comfortably. Talking without difficulty and swallowing without difficulty. She has regular rhythm and rate on the monitor. No pedal edema. LABORATORIES: Blood sugars 174, 199, 186, 189. Labs from yesterday reviewed and I think she has lab back today. The sodium 131, potassium 5.2, chloride 92, BUN 14, creatinine 1.3, blood sugar 211, 202, 209, 186. Creatinine has done well. When she presented it was 2.2 so renal function looks good. ASSESSMENT AND PLAN: 1. The patient has had 3 debridements and then abdomen closed for necrotic infected panniculitis. This will be day 9 of treatment with Zyvox and cefepime. She is making good improvement. She wants to try and get home in a couple days. Her birthday is in 2 days. I am not sure if we will make that. 2. Morbid obesity. 3. Diabetes mellitus type 2. Continue sliding scale. Sugars seem to be coming down. 4. History of hypothyroidism. She is on Synthroid 50 mcg and that was just started when she came in the hospital so I am going to decrease her methylprednisone from 40 to 20 mg q.8. She is on Protonix 40 mg IV q.24 hours. I think we can change that to p.o. Blood pressure appeared well controlled. cc: MD Travon Dover MD
--- NOTE | 2018-12-02 14:03 | INFECTIOUS DISEASE PROGRESS NO ---
DATE: 11/30/2018 PRESENT ILLNESS: The patient has had debridements of her necrotic panniculitis by Dr. Verma. MEDICATIONS: This is the ninth day of treatment with antibiotics, namely Zyvox and cefepime. PHYSICAL EXAMINATION: Vital Signs: Temperature is 98 degrees, pulse 76, respirations 14, blood pressure 127/57. General: This is a morbidly obese, middle-aged female. She is intubated and sedated. Head/eyes/ears/nose/throat: Orotracheal tube is in place. I did not see any drainage coming from the nose or ears/ Neck: I passively moved her neck, and it did not seem to cause her any pain. The patient has a right internal jugular venous catheter in place. The site was not erythematous. Lungs: Distant breath sounds. I did not hear any rales. Cardiovascular: Distant heart tones. When I could hear some heart tones, they were regular, and the monitor shows that the patient is in sinus rhythm. Abdomen: Soft. The VAC is no longer present. There is a dressing over the lower abdomen where the surgery is. The skin looks less erythematous and indurated. Neurologic: The patient is sedated. She did not respond to verbal stimuli. There is no tremor. LAB AND X-RAY: Chest x-ray shows pulmonary venous congestion. Creatinine is 1.2, GFR is 48. CBC shows a white count of 4110, hemoglobin 9.2 and platelet count 124,000. Arterial blood gases show a pH of 7.41, a PO2 of 77 and a pCO2 of 54. ASSESSMENT AND PLAN: The patient has had debridement of a necrotic panniculitis. My plan for now is to continue the current antibiotics. COMORBIDITIES: Morbid obesity, diabetes mellitus, hypothyroidism. cc: MD Travon Dominique MD
--- NOTE | 2018-12-02 16:22 | INFECTIOUS DISEASE PROGRESS NO ---
DATE: 12/02/2018 PRESENT ILLNESS: The patient is status post debridements of her necrotic panniculitis. MEDICATIONS: This is the 9th day of treatment with the combination of Zyvox and cefepime. PHYSICAL EXAMINATION: Vital Signs: Temperature is 98.2 degrees, pulse 82, respirations 19, blood pressure is 138/56. General: This is a morbidly obese, middle-aged female. Now she is just wearing nasal cannulas for her oxygen. Head/eyes/ears/nose/throat: She can hear my spoken words and see near objects. I do not see any white patches in her mouth. Neck: The patient does not have any pain in her neck when she moves it. Lungs: Distant breath sounds. I did not hear rales or rhonchi. Cardiovascular: Heart tones are distant. On the monitor, it shows that she is in sinus rhythm. Abdomen: Soft. I looked at the lower part of the abdomen where the incision was. The incision is intact. There is no erythema. There is no drainage coming from the incision. Neurologic: The patient is alert. She can move her extremities. There is no tremor. LAB AND X-RAY: Chest x-ray was not yet read yet. To me it looks like it is showing cardiomegaly with pulmonary edema which is what the previous x-ray showed. Patient's blood gases show a CBC with a pH of 7.66, a PO2 of 152 and a pCO2 of 25. The creatinine is 1.3. GFR is 44. ASSESSMENT AND PLAN: The patient has had 2 debridements of her necrotic panniculitis. She has also been on antibiotics and now it appears to me that all the infection has cleared. My plan is to stop the patient's antibiotics. I am signing off her case now but I am available to see her on a p.r.n. basis. COMORBIDITIES: Morbid obesity, diabetes mellitus, hypothyroidism. cc: MD Travon Dominique MD
[2018-12-02] MEDS: CATAPRES-TTS-3 TD SCH (16:43)
[2018-12-02] MEDS ORDERED: LASIX IV ONE (17:58)
[2018-12-02] MEDS: 1/2 NS + KCL 20 MEQ 1,000 ML IV SCH (20:29)
--- NOTE | 2018-12-02 22:34 | PULMONOLOGY PROGRESS NOTE ---
DATE: 12/02/2018 SUBJECTIVE: The patient is awake, alert, and conversant. She denies shortness of breath. OBJECTIVE: Vital Signs: BP 142/68, heart rate 96, respiratory rate 13, oxygen saturation 94%. HEENT: Pupils are equal and reactive. Oropharynx is clear. Neck: Supple. Chest: Reveals diminished breath sounds bilaterally with prolonged expiratory phase. Cardiac exam: S1-S2. Abdomen: Obese and soft with surgical dressings in place. Extremities: Reveal trace to 1+ peripheral edema. LABORATORIES: Chest x-ray reveals cardiomegaly with pulmonary vascular congestion. Arterial blood gas reveals a pH 7.66, pCO2 of 25, pO2 of 150, sodium 132, potassium 5.2, chloride 92, bicarbonate 26, BUN 14, creatinine 1.3. IMPRESSION: A 47-year-old with: 1. Acute hypoxemic respiratory failure. 2. Hypercapnic respiratory failure. 3. Nicotine addiction. 4. Chronic kidney disease. 5. Coronary artery disease. 6. Panniculitis, status post resection of a necrotic panniculus. 7. Hypothyroidism with noncompliance. PLAN: 1. Continue to cycle BiPAP. 2. Decrease IV fluids. 3. Check Synthroid level. 4. Follow up chest x-ray and labs tomorrow morning. cc: MD Travon Mhaan MD
[2018-12-03] MEDS: HUMULIN R SUBQ SCH ×5 (04:30→21:03)
[2018-12-03] MEDS: SOLU-MEDROL IV SCH ×3 (04:37→21:03)
[2018-12-03 04:48] LABS: ALLEN TEST YES; BE 8.7 mmoll (-3.0-3.0); BLOOD TYPE ARTERIAL; HCO3-(ACT) 31.5 mmoll (20.0-26.0); METHB 0.7 % (0.0-1.5); PCO2(98.6) 50 mmHg (35-45); SAMPLE BLOOD; THB 9.5 g/dL (11.5-17.4); pH(98.6) 7.44 (7.35-7.45)
[2018-12-03 04:59] LABS: O2HB 82.6 % (95.0-99.0); PO2(98.6) 44 mmHg (60-100)
[2018-12-03 05:00] LABS: MODALITY BI PAP
[2018-12-03] MEDS: SYNTHROID IV SCH ×3 (05:28→06:20)
[2018-12-03] MEDS: PROTONIX PO SCH ×2 (05:28→06:19)
[2018-12-03 06:41] LABS: CALCIUM 9.8 mg/dL (8.8-10.2); CREATININE 1.5 mg/dL (0.5-0.9); MAGNESIUM 1.9 mg/dL (1.5-2.7); PHOSPHORUS 3.8 mg/dL (2.7-4.5); POTASSIUM 5.3 mmol/L (3.5-5.1)
--- NOTE | 2018-12-03 07:14 | Diag Imaging Result Doc PS360 ---
EXAM: CHEST-PORTABLE HISTORY: Vent protocol TECHNIQUE: Chest single view COMPARISON: 12/02/2018 FINDINGS: The lungs are well expanded. The heart is enlarged. Right jugular line is unchanged. The vessels are not distended. There are no infiltrates. No effusion identified. IMPRESSION: Cardiomegaly Electronically signed by Wil Harris 12/03/2018 7:12 AM
[2018-12-03] MEDS: DUONEB (A & A) INH SCH ×5 (07:42→23:06)
[2018-12-03] MEDS: NICODERM PATCH TD SCH (08:36)
--- NOTE | 2018-12-03 10:18 | PROGRESS NOTE ---
DATE: 12/03/2018 SUBJECTIVE: Ms. Longoria is breathing much better, feeling better. She is sitting up. She is on the BiPAP at the present time. She does have BiPAP at home. OBJECTIVE: Vital signs: Temperature 97.2 degrees, pulse 74, respirations 14, blood pressure 156/74. HEENT: Pupils are equal and round. Lungs: Clear in all lung gaming. Cardiovascular: Regular rhythm and rate without murmur or S3. Abdomen: Soft. Skin: Warm and dry. Genitourinary: Her urine output was good, it looks like it was about 4200 mL. IMAGING: Chest x-ray from this morning. Some cardiomegaly. Lungs well expanded. Heart is enlarged. Right jugular line is unchanged. Vessels are not distended. No infiltrates. Looks good. ASSESSMENT AND PLAN: 1. Acute hypoxemic respiratory failure, hypercapnic respiratory failure, nicotine addiction. She has done well, weaned from the ventilator and air and gas exchange is improving. 2. Chronic kidney disease. 3. Coronary artery disease. No sign of active ischemia. 4. Panniculitis. She has had 3 irrigations and debridements and resections for necrotic panniculus and seems to be doing well. 5. Hypothyroidism with noncompliance, and she is back on her Synthroid. 6. Seems to be making progress. I think Physical Therapy is involved. She is hoping to go home soon. cc: MD Travon Dover MD
[2018-12-03] MEDS ORDERED: 1/2 NS + KCL 20 MEQ 1,000 ML IV SCH (10:54)
--- NOTE | 2018-12-03 18:01 | PULMONOLOGY PROGRESS NOTE ---
DATE: 12/03/2018 SUBJECTIVE: The patient is awake, alert. She is currently on BiPAP. She denies shortness of breath. She reports her appetite is improving. OBJECTIVE: Vital Signs: The patient has been afebrile for the last 24 hours. Blood pressure 156/74, heart rate 70, respiratory rate 14, oxygen saturation 100% on BiPAP. HEENT: Pupils are equal and reactive. Oropharynx appears clear. Neck: Supple. Chest: Reveals shallow breath sounds bilaterally with basilar crackles. Cardiac: S1 and S2. Abdomen: Soft with dressings in position. Extremities: Reveal 1+ peripheral edema. LABORATORIES: Chest x-ray reveals cardiomegaly with no acute infiltrates. Arterial blood gas reveals a pH of 7.44, pCO2 of 50, PO2 of 44 on FiO2 of 30%. Sodium is 135, potassium 5.3, chloride 93, BUN 22, creatinine 1.5. TSH Level is 31, which has decreased from 61. IMPRESSION: A 47-year-old with: 1. Acute hypoxemic respiratory failure. 2. Hypercapnic respiratory failure, which is chronic. 3. Nicotine addiction. 4. Chronic kidney disease. 5. Coronary artery disease. 6. Hypothyroidism with noncompliance with medications. 7. Panniculitis, status post resection of a necrotic panniculus. PLAN: 1. Continue to cycle BiPAP. 2. Encourage p.o. intake. 3. Hep-Lock IV fluids. 4. Transition patient to oral Synthroid. 5. Encourage smoking cessation. cc: MD Travon Mahan MD
[2018-12-03] MEDS: MORPHINE IV PRN (21:18)
[2018-12-04] MEDS: HUMULIN R SUBQ SCH ×3 (01:04→08:07)
[2018-12-04 04:11] LABS: ALLEN TEST YES; BE 8.1 mmoll (-3.0-3.0); BLOOD TYPE ARTERIAL; HCO3-(ACT) 31.3 mmoll (20.0-26.0); METHB 1.1 % (0.0-1.5); O2(CT) 13.1 mL/dL (15.0-23.0); O2HB 97.2 % (95.0-99.0); PO2(98.6) 143 mmHg (60-100); SAMPLE BLOOD; SAO2 99.7 % (95.0-100.0); THB 9.4 g/dL (11.5-17.4); pH(98.6) 7.42 (7.35-7.45)
[2018-12-04 04:12] LABS: MODALITY BI PAP
[2018-12-04 04:26] LABS: PCO2(98.6) 52 mmHg (35-45)
[2018-12-04] MEDS: PROTONIX PO SCH ×2 (05:44→06:16)
[2018-12-04] MEDS: SYNTHROID PO SCH ×2 (05:44→06:17)
[2018-12-04] MEDS: SOLU-MEDROL IV SCH (05:44)
[2018-12-04 07:41] VITALS: BP 135/80
[2018-12-04] MEDS: DUONEB (A & A) INH SCH (07:52)
[2018-12-04] MEDS ORDERED: SOLU-MEDROL IV SCH (08:00)
--- NOTE | 2018-12-04 08:14 | PROGRESS NOTE ---
DATE: 12/04/2018 SUBJECTIVE: Ms. Longoria feels much better. She is sitting up in the bed and asking about going home. OBJECTIVE: Vital Signs: Temperature 97.9 degrees, pulse 67, respirations 16, blood pressure 135/80. HEENT: Pupils are equal round. Lungs: Clear in all lung gaming. Cardiovascular: Regular rhythm and rate without murmur or S3. Urine output was 2000 mL. ASSESSMENT AND PLAN: 1. Acute hypoxemic respiratory failure and hypercapnic respiratory failure which is chronic hypoventilation syndrome, obesity. Continue her BiPAP at night. Her breathing is doing much better though. Air and gas exchange improved. 2. Nicotine addiction. 3. Chronic kidney disease, which is stable. 4. Coronary artery disease. No sign of active ischemia. Doing well. 5. Hypothyroidism, noncompliance to medications. Continue to encourage her to take her thyroid medicine. 6. Panniculitis, appears to be improving. White count is 4110, that was on the 19th, hematocrit stable at 29, platelet count 124,000. Blood sugars doing good, 161, 148, 131, marked improvement. I see no growth from cultures. So can go home when Dr. Travon Verma feels she is ready. Cut her methylprednisone down further to 20 mg q.12h. cc: MD Travon Dover MD
[2018-12-04] MEDS: NICODERM PATCH TD SCH (08:16)
--- NOTE | 2018-12-04 14:13 | PULMONOLOGY PROGRESS NOTE ---
DATE: 12/04/2018 SUBJECTIVE: The patient is awake, alert, and conversant. She is excited that she is getting to go home. Her central line has just been removed. OBJECTIVE: Vital Signs: BP 135/80, heart rate 67, respiratory rate 16, oxygen saturation 98%. HEENT: Pupils are equal and reactive. Oropharynx is clear. Neck: Supple. Chest: Diminished breath sounds in the lung bases. Cardiac: S1, S2. Abdomen: Obese and soft, with minor drainage at her surgical incision site. Extremities: Without edema. LABORATORY DATA: White blood count 7.42. PCO2 of 52, PO2 of 143 on 40% FiO2. IMPRESSION: A 47-year-old with: 1. Acute hypoxemic respiratory failure. 2. Chronic hypercapnic respiratory failure. 3. Nicotine addiction. 4. Chronic kidney disease. 5. Coronary artery disease. 6. Hypothyroidism, now transitioned to oral medications. 7. Panniculitis, status post resection. RECOMMENDATIONS: 1. Continue CPAP for obstructive sleep apnea at the time of discharge. 2. Strongly encourage the patient to discontinue tobacco use. 3. Recommend following up TSH level in 3 to 4 weeks. 4. Smoking cessation was discussed at length. The patient will have increased risk for dehiscence of her wound if she smokes after discharge. cc: MD Travon Mahan MD
--- NOTE | 2018-12-07 15:00 | OPERATIVE NOTE ---
PROCEDURE DATE: 11/29/2018 DIAGNOSIS: 1. Morbid obesity. 2. Infarcted panniculus. PROCEDURE: Removal of wound vacuum assisted closure, secondary wound closure. Placement of a right internal jugular line. SURGEON: Travon Verma MD DESCRIPTION OF PROCEDURE: The patient was brought to the operating room. She is presently on the ventilator. The wound VAC was removed. The wound appeared to be granulating nicely. It was prepped and draped in the appropriate manner and secondary wound closure was performed with 0 Vicryl and stainless steel clips. The surgeon then re-gowned. A right internal jugular line was subsequently placed with ultrasound guidance. The chest x-ray revealed good placement of the line without pneumothorax. She was subsequently transferred back to the intensive care unit, remaining on the ventilator. ESTIMATED BLOOD LOSS: Around 10 mL. cc: Travon Verma MD
--- NOTE | 2018-12-07 15:09 | OPERATIVE NOTE ---
PROCEDURE DATE: 11/25/2018 DIAGNOSIS: Bleeding status post resection of an infarcted panniculus. PROCEDURE: 1. Removal wound VAC. 2. Hemostasis in the wound in the pannus with replacement wound VAC. PROCEDURE DETAILS: The patient was brought to the operating room. After satisfactory induction of IV and endotracheal anesthesia, the wound VAC was removed revealing 2-300 mL of [*blood clot]. The area was subsequently prepped and draped. Some oozing points were controlled by electrocautery and wound VAC was redeployed. She was subsequently awakened in the operating room and transferred to recovery. Estimated blood loss was 200 out of the clot and another 10 from the surgery itself. cc: Travon Verma MD MTDD
--- NOTE | 2018-12-07 20:44 | DISCHARGE SUMMARY ---
ADMISSION DATE: 11/22/2018 DISCHARGE DATE: 12/04/2018 DIAGNOSES: 1. Morbid obesity. She is 4 feet 9 inches and in the 500-pound range. 2. Severe sleep apnea. 3. Chronic obstructive pulmonary disease. She is on home oxygen and still smokes. 4. Infarction of a portion of the panniculus. PROCEDURES PERFORMED: 1. Operative debridement of necrotic panniculus on November 23. Returned to the OR for bleeding on November 25. Secondary wound closure on November 29 with placement of central line. 2. The patient required emergency intubation during her hospitalization and remained on the ventilator for several days. CONSULTATIONS: Dr. Alexis Joshua, Dr. Luis Khan and Dr. Renate Ruiz. HISTORY/HOSPITAL COURSE: The patient is a 47-year-old [place] female brought in by her daughter. She is essentially bed ridden and wheelchair bound secondary to her obesity and severe COPD. She is on home oxygen but still continues to smoke when she is not on oxygen. The large pannus had an area of infarction into the distal dependent end. She was admitted, placed on IV antibiotics and taken to surgery on November 23 for debridement of the largest necrotic spot with placement of a wound VAC. Subsequent to this she developed some bleeding and was returned to surgery on November 25 for control of the bleeding and replacement of the wound VAC. Shortly after this, she went into respiratory failure and required intubation and remained on the ventilator for about 5 days. On November 29 she was returned to the OR for wound VAC removal, secondary wound closure, and placement of a central line. She subsequently improved after this. Was extubated and tolerated dietary advancements well. Was transferred from the ICU to the CICU and subsequently allowed home on December 04. The wound appears to be healing nicely. She is admonished about her tobacco as well as her heavy oral intakes of food, and she will be seen in the office in 1-2 weeks' time. cc: Travon Verma MD
== END 2018-12-04 11:48 | disposition home or self-care (01) | DRG 264 ==
LOC: DIRADM → 4N 15:53 → ICU 11-23 11:03 → 3N 11-24 15:32 → ICU 11-25 12:53 → 3S 12-02 18:27
PROVIDERS: ADMIT Surgery; ATTEND Surgery
CPT/HCPCS: 31500; 71010; 71045; 76000; 76700; 80048; 80053; 81001; 82465; 82550; 82553; 82570; 82607; 82746; 82805; 82948; 83735; 84100; 84134; 84156; 84300; 84439; 84443; 84450; 84478; 84484; 84540; 85014; 85018; 85025; 86850; 86900; 86901; 87070; 87075; 88304; 93005; 93010; 94002; 94003; 94640; 94660; 94760; 94761; 94762; A9270; C9113; J0330; J0610; J0692; J1170; J1650; J1940; J2020; J2060; J2250; J2270; J2370; J2405; J2920; J3010; J3475; J3480; J7030; S0164; XXXXX